=== PATIENT | male | born 1985 | race Caucasian/White ===

== ENCOUNTER 2017-03-06 02:48 | Emergency (ER) | payer MEDICARE, MEDICAID ==
[~2017-03-06] VITALS: Ht 175.3 cm; Wt 74.3 kg
[~2017-03-06 02:48] MED LIST: GABA800T2 PO
[2017-03-06] MEDS ORDERED: ketorolac trometh. 30mg/ml inj. IM ONE (04:40)
[2017-03-06 06:23] VITALS: BP 121/77
== END 2017-03-06 06:24 | disposition home or self-care (01) ==
LOC: ER 02:48
DX: R07.89 Other chest pain (principal); R51 Headache; R20.0 Anesthesia of skin; F17.200 Nicotine dependence, unspecified, uncomplicated; Z59.0 Homelessness; Z88.6 Allergy status to analgesic agent
CPT/HCPCS: 93005; 99283; J1885

== ENCOUNTER 2017-03-07 06:45 | Emergency (ER) | payer MEDICARE, MEDICAID ==
[~2017-03-07] VITALS: Ht 172.7 cm; Wt 74.7 kg
[2017-03-07] MEDS ORDERED: famotidine 20mg tablet PO ONE (07:05)
[2017-03-07] MEDS ORDERED: pantoprazole 40mg Tablet.DR PO ONE (07:05)
[2017-03-07 07:37] VITALS: BP 117/62
== END 2017-03-07 07:39 | disposition home or self-care (01) ==
LOC: ER 06:46
DX: K21.9 Gastro-esophageal reflux disease without esophagitis (principal); R06.02 Shortness of breath; F17.200 Nicotine dependence, unspecified, uncomplicated; Z59.0 Homelessness; Z88.6 Allergy status to analgesic agent
CPT/HCPCS: 93005; 99283

== ENCOUNTER 2017-03-10 14:03 | Emergency (ER) | payer MEDICARE, MEDICAID ==
[~2017-03-10] VITALS: Ht 172.7 cm; Wt 73.5 kg
[2017-03-10] MEDS ORDERED: METH500T PO (15:23)
[2017-03-10 15:36] VITALS: BP 130/77
== END 2017-03-10 15:38 | disposition home or self-care (01) ==
LOC: ER 14:04
DX: S16.1XXA Strain of muscle, fascia and tendon at neck level, initial encounter (principal); F41.9 Anxiety disorder, unspecified; K21.9 Gastro-esophageal reflux disease without esophagitis; G89.29 Other chronic pain; Z59.0 Homelessness; Z56.0 Unemployment, unspecified; Z88.6 Allergy status to analgesic agent; X58.XXXA Exposure to other specified factors, initial encounter; Y93.89 Activity, other specified; Y92.89 Other specified places as the place of occurrence of the external cause; Y99.9 Unspecified external cause status
CPT/HCPCS: 99283

== ENCOUNTER 2017-03-12 07:25 | Emergency (ER) | payer MEDICARE, MEDICAID ==
[~2017-03-12] VITALS: Ht 5703.2 cm; Wt 73.3 kg
[~2017-03-12 07:25] MED LIST changes: +METH500T PO
[2017-03-12] MEDS ORDERED: DICL-194 PO (07:39)
[2017-03-12 07:50] VITALS: BP 131/74
== END 2017-03-12 07:52 | disposition home or self-care (01) ==
LOC: ER 07:25
DX: S16.1XXD Strain of muscle, fascia and tendon at neck level, subsequent encounter (principal); K21.9 Gastro-esophageal reflux disease without esophagitis; G89.29 Other chronic pain; Z59.0 Homelessness; Z88.6 Allergy status to analgesic agent; X58.XXXD Exposure to other specified factors, subsequent encounter
CPT/HCPCS: 99283

== ENCOUNTER 2017-08-07 03:24 | Emergency (ER) | payer MEDICARE, MEDICAID ==
[~2017-08-07] VITALS: Ht 175.3 cm; Wt 80.0 kg
[~2017-08-07 03:24] MED LIST changes: +DICL-194 PO
[2017-08-07 03:29] VITALS: BP 139/90
[2017-08-07] MEDS ORDERED: ibuprofen tablet 400 MG TABLET PO ONE (03:40)
[2017-08-07] MEDS ORDERED: metoclopramide 10mg tablet PO ONE (03:40)
[2017-08-07] MEDS ORDERED: IBUP-1984 PO (03:40)
[2017-08-07] MEDS: diphenhydrAMINE 25mg capsule PO ONE ×2 (03:46→03:47)
== END 2017-08-07 03:55 | disposition home or self-care (01) ==
LOC: ER 03:24
DX: G43.909 Migraine, unspecified, not intractable, without status migrainosus (principal); M54.9 Dorsalgia, unspecified; K21.9 Gastro-esophageal reflux disease without esophagitis; G89.29 Other chronic pain; Z60.2 Problems related to living alone; Z59.0 Homelessness; Z56.0 Unemployment, unspecified; Z88.8 Allergy status to other drugs, medicaments and biological substances; Z79.899 Other long term (current) drug therapy
CPT/HCPCS: 99283; J8597; Q0163

== ENCOUNTER 2017-08-09 21:53 | Emergency (ER) | payer MEDICARE, MEDICAID ==
[~2017-08-09] VITALS: Ht 175.3 cm; Wt 64.0 kg
[~2017-08-09 21:53] MED LIST changes: +IBUP-1984 PO
[2017-08-09] MEDS ORDERED: acetaminophen 325mg tablet PO ONE (22:35)
[2017-08-09] MEDS ORDERED: ketorolac tromethamine 15mg/ml inj. IM ONE (22:35)
[2017-08-09] MEDS ORDERED: SUMAtriptan succ. 6 MG/0.5ml vial SQ ONE (22:35)
[2017-08-09] MEDS ORDERED: IBUP-1985 PO (22:57)
[2017-08-09 23:00] VITALS: BP 127/75
== END 2017-08-09 23:03 | disposition home or self-care (01) ==
LOC: ER 21:53
DX: R51 Headache (principal); F17.200 Nicotine dependence, unspecified, uncomplicated; G89.29 Other chronic pain; K21.9 Gastro-esophageal reflux disease without esophagitis; Z88.6 Allergy status to analgesic agent; Z79.899 Other long term (current) drug therapy; Z56.0 Unemployment, unspecified; Z59.0 Homelessness; Z60.2 Problems related to living alone
CPT/HCPCS: 99282; J1885; J3030

== ENCOUNTER 2017-08-11 13:13 | Emergency (ER) | payer MEDICARE, MEDICAID ==
[~2017-08-11] VITALS: Ht 175.3 cm; Wt 77.0 kg
[~2017-08-11 13:13] MED LIST changes: +IBUP-1985 PO
[2017-08-11 13:25] VITALS: BP 123/75
[2017-08-11] MEDS ORDERED: GABA800T2 PO (13:47)
[2017-08-11] MEDS ORDERED: IBUP-1984 PO (13:48)
== END 2017-08-11 13:56 | disposition home or self-care (01) ==
LOC: ER 13:13
DX: M54.2 Cervicalgia (principal); K21.9 Gastro-esophageal reflux disease without esophagitis; G89.29 Other chronic pain; Z56.0 Unemployment, unspecified; Z59.0 Homelessness; Z60.2 Problems related to living alone; Z88.8 Allergy status to other drugs, medicaments and biological substances; Z79.899 Other long term (current) drug therapy
CPT/HCPCS: 99283

== ENCOUNTER 2017-08-13 04:29 | Emergency (ER) | payer MEDICARE, MEDICAID ==
[~2017-08-13] VITALS: Ht 172.7 cm; Wt 76.3 kg
[2017-08-13 04:36] VITALS: BP 127/71
[2017-08-13] MEDS ORDERED: acetaminophen 325mg tablet PO ONE (04:45)
[2017-08-13] MEDS ORDERED: LIDOcaine 5% patch TP ONE (04:45)
[2017-08-13] MEDS ORDERED: ketorolac trometh inj. 60 MG/2 ML VIAL IM ONE (04:45)
[2017-08-13] MEDS ORDERED: LIDO700A32 TOP (05:10)
== END 2017-08-13 05:18 | disposition home or self-care (01) ==
LOC: ER 04:30
DX: M54.2 Cervicalgia (principal); G89.29 Other chronic pain; K21.9 Gastro-esophageal reflux disease without esophagitis; Z88.6 Allergy status to analgesic agent; Z79.899 Other long term (current) drug therapy; Z56.0 Unemployment, unspecified; Z59.0 Homelessness; Z60.2 Problems related to living alone
CPT/HCPCS: 96372; 99283; J1885

== ENCOUNTER 2017-08-16 15:25 | Emergency (ER) | payer MEDICARE, MEDICAID ==
[~2017-08-16] VITALS: Ht 175.3 cm; Wt 78.4 kg
[~2017-08-16 15:25] MED LIST changes: +LIDO700A32 TOP
[2017-08-16 15:31] VITALS: BP 131/71
[2017-08-16] MEDS ORDERED: SUMA100T PO (16:00)
[2017-08-16] MEDS ORDERED: LORazepam 1 MG tablet PO ONE (16:00)
[2017-08-16] MEDS ORDERED: SUMAtriptan succ. 6 MG/0.5ml vial SQ ONE (16:00)
[2017-08-16] MEDS ORDERED: ketorolac trometh inj. 60 MG/2 ML VIAL IM ONE (16:00)
== END 2017-08-16 16:52 | disposition home or self-care (01) ==
LOC: ER 15:25
DX: G43.909 Migraine, unspecified, not intractable, without status migrainosus (principal); K21.9 Gastro-esophageal reflux disease without esophagitis; Z60.2 Problems related to living alone; Z59.0 Homelessness; Z56.0 Unemployment, unspecified; Z79.899 Other long term (current) drug therapy; Z88.4 Allergy status to anesthetic agent
CPT/HCPCS: 96372; 99284; J1885; J3030

== ENCOUNTER 2017-08-20 11:20 | Emergency (ER) | payer MEDICARE, MEDICAID ==
[~2017-08-20] VITALS: Ht 175.3 cm; Wt 81.8 kg
[~2017-08-20 11:20] MED LIST changes: +SUMA100T PO
[2017-08-20] MEDS ORDERED: dexamethasone sod phosphate 10mg/ml inj IV STA (12:47)
[2017-08-20] MEDS ORDERED: ketorolac trometh. 30mg/ml inj. IV ONE (12:50)
[2017-08-20] MEDS ORDERED: NAPR-56 PO (12:50)
[2017-08-20] MEDS ORDERED: proCHLORperazine 10 MG/2 ml inj IV ONE (12:50)
[2017-08-20] MEDS ORDERED: normal saline 1000ML IV soln IVB ONE (12:50)
[2017-08-20] MEDS ORDERED: morphine 4 MG/ML inj SYRINge IV ONE (12:50)
[2017-08-20 13:26] VITALS: BP 123/71
== END 2017-08-20 13:56 | disposition home or self-care (01) ==
LOC: ER 11:21
DX: G43.909 Migraine, unspecified, not intractable, without status migrainosus (principal); K21.9 Gastro-esophageal reflux disease without esophagitis; G89.29 Other chronic pain; Z60.2 Problems related to living alone; Z59.0 Homelessness; Z56.0 Unemployment, unspecified; Z88.8 Allergy status to other drugs, medicaments and biological substances; Z79.899 Other long term (current) drug therapy
CPT/HCPCS: 96374; 96375; 99284; J0780; J1100; J1885; J2270; J7030

== ENCOUNTER 2024-09-04 01:49 | Emergency (ER) | payer MEDICARE, MEDICAID ==
[~2024-09-04] VITALS: Ht 172.7 cm; Wt 68.2 kg
[~2024-09-04 01:49] MED LIST changes: +BUPR1FIL3 SL; +GABA-1555 PO; -GABA800T2 PO; -IBUP-1984 PO; +LIDO-52 TOP; -LIDO700A32 TOP; -SUMA100T PO
--- NOTE | 2024-09-04 02:11 | Physician Documentation ---
History of Present Illness ~ Chief Complaint: Headache Stated Complaint: HEADACHE Time Seen by MD: 02:07 Primary Medical Doctor: pedro pablo GOODRICH Patient presents to the emergency room with headache. Patient has history of headaches in his scribe's this is similar. Also requesting Suboxone strip. Reports ibuprofen works well for him. Medication Reconciliation Allergies: Coded Allergies: tramadol (Unverified Allergy, Intermediate, SEIZURES, 08/31/24) Scheduled Buprenorphine Hcl/Naloxone Hcl (Suboxone 8 Mg-2 Mg Sl Film), 1 STRIP SL DAILY Diclofenac Sodium (Diclofenac Sodium), 1 TABLET PO BID Gabapentin (Gabapentin), 1 TAB PO Q8H, (Reported) Gabapentin (Gabapentin), 1 TAB PO Q8H Ibuprofen (Ibuprofen), 1 TAB PO Q8H Lidocaine (Lidoderm), 1 PATCH TOP DAILY Methocarbamol (Robaxin), 1 TAB PO Q8H Past Medical History Past Medical History: Headache, Migraine, GERD, Chronic Pain, Anxiety Past Surgical History: no surgical history Alcohol Use: None Drug Use: none Lives with: Alone Lives In: Homeless, Other Occupation: unemployed Review of Systems ROS All review of systems negative except as per HPI Physical Exam Vital Signs: Temperature: 97.9, Source: Temporal, Heart Rate: 106, Respiratory Rate: 16, BP: 127/90, Pulse Oximetry: 96, Weight: 68.180 Oxygen Flow Rate: 0 Physical Exam General: Patient is awake, alert, oriented x4 in no acute distress, fidgety Head: Normocephalic and atraumatic. Eyes: Conjunctival normal. EOMI. PERRL. ENT: Mucous membranes moist. Neck: Supple, trachea is midline. Chest: Clear to auscultation bilaterally without rales, rhonchi, or wheezes. There is no accessory muscle use or retractions. Cardiac: Tachycardic and regular without murmurs, gallops, or rubs. Progress Results/Orders Results/Orders Vital Signs 09/04/24 02:01 Temp 97.9 Pulse 106 Resp 16 B/P (MAP) 127/90 Pulse Ox 96 O2 Flow Rate 0 Medical Decision Making Findings Patient presents to the emergency room with headache. This is his usual headache and he had not feel emergent labs or imaging is necessary as I do not suspect meningitis or acute emergent intracranial process such as bleeds although these were considered. Differential Dx:Considerations: Include: RODAS-Cluster, RODAS-Migraine, RODAS- Hypertensive, Close head injuyr, CVA, Hemorrhage-Intracerebral, Hemorrhage-Subarachnoid, Hemorrhage-Subdural Departure Disposition: 01 HOME / SELF CARE / HOMELESS Impression: Primary Impression: Headache Condition: Stable Discharge Instructions: Headache Referrals: NO PRIMARY CARE PROVIDER (PCP) Signature Scribe Signature: No scribe Attestation: The note accurately reflects work and decisions made by me.Gutierrez Glez MD 09/04/24 02:11 GUTIERREZ GLEZ MD Sep 04, 2024 02:11
[2024-09-04] MEDS: buprenorphine/naloxone 8MG-2MG SUBlingual film SL ONE (02:19)
[2024-09-04] MEDS: ibuprofen tablet 400 MG TABLET PO ONE (02:19)
[2024-09-04] MEDS: ondansetron 4mg rapidly disintigrating tab PO ONE (02:19)
[2024-09-04 02:31] VITALS: BP 126/88; PULSE 103; RESP 20; TEMP 98.6; O2SAT 99
== END 2024-09-04 02:32 | disposition home or self-care (01) ==
LOC: ER 01:49
DX: G43.909 Migraine, unspecified, not intractable, without status migrainosus (principal); K21.9 Gastro-esophageal reflux disease without esophagitis; F41.9 Anxiety disorder, unspecified; Z79.899 Other long term (current) drug therapy; Z88.5 Allergy status to narcotic agent; Z88.8 Allergy status to other drugs, medicaments and biological substances
CPT/HCPCS: 99284

== ENCOUNTER 2024-09-13 09:38 | Emergency (ER) | payer MEDICAID, MEDICARE ==
[~2024-09-13] VITALS: Ht 172.7 cm; Wt 75.5 kg
[~2024-09-13 09:38] MED LIST changes: -BUPR1FIL3 SL
[2024-09-13] MEDS ORDERED: SUMA25TA35 PO (09:50)
[2024-09-13] MEDS ORDERED: IBUP-860 PO (09:50)
--- NOTE | 2024-09-13 09:53 | Physician Documentation ---
History of Present Illness ~ Chief Complaint: Headache Stated Complaint: HEADACHE Time Seen by MD: 09:46 Primary Medical Doctor: pedro pablo Source: patient Mode of Arrival: Ambulatory Exam Limitations: no limitations HPI 39-year-old male complaining of mild headache wanting medications for headache, he wanted Suboxone which he has been off of it for several weeks in his only beginning in the emergency department. Patient is also requesting services. Patient is homeless. Patient denies any dizziness, shortness of breath, chest pain or fever Medication Reconciliation Allergies: Coded Allergies: tramadol (Unverified Allergy, Intermediate, SEIZURES, 08/31/24) Scheduled Diclofenac Sodium (Diclofenac Sodium), 1 TABLET PO BID Gabapentin (Gabapentin), 1 TAB PO Q8H, (Reported) Gabapentin (Gabapentin), 1 TAB PO Q8H Ibuprofen (Ibuprofen), 1 TAB PO Q8H Lidocaine (Lidoderm), 1 PATCH TOP DAILY Methocarbamol (Robaxin), 1 TAB PO Q8H Discontinued Medications Buprenorphine Hcl/Naloxone Hcl (Suboxone 8 Mg-2 Mg Sl Film), 1 STRIP SL DAILY Discontinued Reason: Auto Discontinued Past Medical History Past Medical History: Headache, Migraine, GERD, Chronic Pain, Anxiety Past Surgical History: no surgical history Alcohol Use: None Drug Use: none Lives with: Alone Lives In: Homeless, Other Occupation: unemployed Review of Systems All Other Systems at this time: Reviewed and Negative Neurological: Reports: see HPI Physical Exam Vital Signs: RN Vital Signs have been reviewed: Yes, Temperature: 97.8, Source: Temporal, Heart Rate: 110, Respiratory Rate: 15, BP: 114/72, Pulse Oximetry: 97, Weight: 75.550 Physical Exam General: Alert, no apparent distress. HEENT: PERRL, EOMI, no injection, moist mucous membranes. Neck: Full range of motion. Respiratory: Lungs clear, no respiratory distress. Chest: No accessory muscle use. Cardiovascular: Regular rate and rhythm, no murmurs. Neurologic: Oriented x4. Cranial nerves grossly intact smooth ambulation equal extruding department supervisor strength Psychiatric: Normal mood and affect. Skin: Normal color, warm and dry. No edema, no ecchymosis. Progress Results/Orders Results/Orders Vital Signs 09/13/24 09:39 Temp 97.8 Pulse 110 Resp 15 B/P (MAP) 114/72 Pulse Ox 97 Medical Decision Making Findings Patient has history of migraine headaches he has homeless and has not had much food today. Patient is requesting resources which will provided at discharge. Sumatriptan and Toradol prior to discharge sumatriptan and ibuprofen prescribed. Discussed out reach program such as [facility]. Neurologic exam unremarkable for any significant findings. Differential Dx:Considerations: Include: RODAS-Migraine Departure Time of Disposition: 09:49 Disposition: 01 HOME / SELF CARE / HOMELESS Impression: Primary Impression: Headache Condition: Stable Discharge Instructions: Headache Additional Instructions: Take medications as prescribed for headache stay well hydrated follow up with [facility] provided and packet and handout for resources. Referrals: NO PRIMARY CARE PROVIDER (PCP) Prescriptions Sumatriptan Succinate* (Imitrex Tab*) 25 Mg Tablet 1 TAB PO DAILY for 9 Days, #9 TAB Prov: FAUZIA PEREA NP 09/13/24 Ibuprofen (Ibu) 400 Mg Tablet 1 TAB PO Q4H for 5 Days, #30 TAB 0 Refills NEEDED FOR PAIN Prov: FAUZIA PEREA NP 09/13/24 Education Educated: Patient Educated regarding: diagnosis, treatment, need for follow up Signature Scribe Signature: No scribe Attestation: The note accurately reflects work and decisions made by me.Fauzia RIOS 09/13/24 09:52 FAUZIA PEREA NP Sep 13, 2024 09:53
[2024-09-13] MEDS: ketorolac trometh 15mg/ml vial 15 MG/ML ML IM ONE (09:55)
[2024-09-13] MEDS: ketorolac trometh 30MG/ML vial 30 MG/ML VIAL IM ONE (10:09)
[2024-09-13 10:27] VITALS: BP 130/72; PULSE 76; RESP 16; TEMP 97.8; O2SAT 98
== END 2024-09-13 10:28 | disposition home or self-care (01) ==
LOC: ER 09:38
DX: G43.909 Migraine, unspecified, not intractable, without status migrainosus (principal); K21.9 Gastro-esophageal reflux disease without esophagitis; F41.9 Anxiety disorder, unspecified
CPT/HCPCS: 96372; 99283; J1885

== ENCOUNTER 2024-09-18 23:35 | Emergency (ER) | payer MEDICARE ==
[~2024-09-18] VITALS: Ht 172.7 cm; Wt 77.2 kg
[~2024-09-18 23:35] MED LIST changes: +IBUP-860 PO; +SUMA25TA35 PO
[2024-09-18 23:37] VITALS: BP 126/82; PULSE 89; RESP 12; O2SAT 98
--- NOTE | 2024-09-19 02:00 | Physician Documentation ---
HPI ~ General Chief Complaint: Medication Request Stated Complaint: HEADACHE Time Seen by MD: 01:55 OK to notify your PCP?: Yes Primary Medical Doctor: [facility] Source: patient, RN/MD, RN notes reviewed, old records Mode of Arrival: POV Exam Limitations: no limitations History of Present Illness HPI Comments 39 year old male presents to the emergency department complaining of a headache and is requesting medication. Patient described his headache as throbbing. He requests Suboxone and Zofan stating that he currently does not see primary care. Patient states that [facility] Medication Reconciliation Allergies: Coded Allergies: tramadol (Unverified Allergy, Intermediate, SEIZURES, 08/31/24) Scheduled Buprenorphine Hcl/Naloxone Hcl (Suboxone 4 Mg-1 Mg Sl Film), 1 STRIP SL DAILY Diclofenac Sodium (Diclofenac Sodium), 1 TABLET PO BID Gabapentin (Gabapentin), 1 TAB PO Q8H, (Reported) Gabapentin (Gabapentin), 1 TAB PO Q8H Ibuprofen (Ibuprofen), 1 TAB PO Q8H Ibuprofen (Ibu), 1 TAB PO Q4H Lidocaine (Lidoderm), 1 PATCH TOP DAILY Methocarbamol (Robaxin), 1 TAB PO Q8H Naproxen (Naproxen), 1 TAB PO Q12H Sumatriptan Succinate* (Imitrex Tab*), 1 TAB PO DAILY Past Medical History Past Medical History: Headache, Migraine, GERD, Chronic Pain, Anxiety Past Surgical History: no surgical history Alcohol Use: None Drug Use: none Lives with: Alone Lives In: Homeless, Other Occupation: unemployed Review of Systems All Other Systems at this time: Reviewed and Negative ROS As stated above in the HPI, otherwise all systems are reviewed and negative. Physical Exam Physical Exam Vital Signs: RN Vital Signs have been reviewed: Yes, Temperature: 98.2, Heart Rate: 89, Respiratory Rate: 12, BP: 126/82, Pulse Oximetry: 98, Weight: 77.250 Pulse Oximetry Reflects: adequate oxygenation Physical Exam General: Alert, no apparent distress. HEENT: PERRL, EOMI, no injection, moist mucous membranes. Neck: Full range of motion. Respiratory: Lungs clear, no respiratory distress. Chest: No accessory muscle use. Cardiovascular: Regular rate and rhythm, no murmurs. Neurologic: Oriented x4. Cranial nerves grossly intact smooth ambulation equal inner tube cutter strength Psychiatric: Normal mood and affect. Skin: Normal color, warm and dry. No edema, no ecchymosis. Progress Results/Orders Reviewed/noted all lab results: Yes Results/Orders Orders - BEHZAD NG MD Substance Use Navigator (09/19/24 02:02) Completed Orders - BEHZAD NG MD Buprenorphine/Naloxone Sl Film (Suboxone (09/19/24 02:03) Naproxen Tablet (Naprosyn Tablet) (09/19/24 02:05) Buprenorphine/Naloxone Sl Film (Suboxone (09/19/24 08:00) Medications Received in ER Medications (Trade) Dose Ordered Sig/Conor Route PRN Reason Start Time Stop Time Status Last Admin Dose Admin (Suboxone 8MG-2MG SL film) 2 film ONCE STAT SL 09/19/24 02:03 09/19/24 02:04 DC 09/19/24 02:18 2 FILM (Naprosyn tablet) 500 mg ONCE ONCE PO 09/19/24 02:05 09/19/24 02:06 DC 09/19/24 02:18 500 MG Vital Signs 09/18/24 09/19/24 23:37 02:13 Temp 98.2 98.2 Pulse 89 Resp 12 B/P (MAP) 126/82 Pulse Ox 98 Re-Evaluation Re-Evaluation : Re-Evaluation: Improved Progress Patient was seen and examined. Patient was given reassurance. The patient is out of his medications. He was encouraged to follow up with the primary care rather than coming to the ER and getting his medication refills. Patient states he takes three tablets or inches of naloxone Suboxone. However reviewing the old medical record I do not see any documentation of such a high dose. Patient was then given just medications as well as naproxen. Afterwards patient was discharged home to follow up with a primary care physician as mentioned we talked about the [facility] as well as the [facility]. Patient appears well otherwise and was discharged home. Medical Decision Making Additional info obtained from: old records Differential Dx:Considerations: Include: Adverse circumstances, Psychosocial, Medical services unavail., Medication refill, Medication non-compliance, Other Departure Time of Disposition: 02:10 Disposition: 01 HOME / SELF CARE / HOMELESS Impression: Primary Impression: Headache Qualified Codes: R51.9 - Headache, unspecified Additional Impression: Medication refill Condition: Stable Discharge Instructions: Medicine Refill at the Emergency Department Referrals: NO PRIMARY CARE PROVIDER (PCP) Prescriptions Buprenorphine Hcl/Naloxone Hcl (SUBOXONE 4 MG-1 MG SL FILM) 4 Mg-1 Mg Film 1 STRIP SL DAILY for 30 Days, #30 STRIP 0 Refills Prov: BEHZAD NG MD 09/19/24 Naproxen (Naproxen) 500 Mg Tablet 1 TAB PO Q12H, #20 TAB Prov: BEHZAD NG MD 09/19/24 Education Educated: Patient Educated regarding: diagnosis, treatment, prognosis, need for follow up Signature Scribe Signature: Scribed for Behzad Ng MD by Jesus Rodriguez . 09/19/24 02:10 Attestation: The note accurately reflects work and decisions made by me.Behzad Ng MD 09/19/24 01:59 BEHZAD NG MD Sep 19, 2024 02:00 JESUS RAO Sep 19, 2024 02:10
[2024-09-19] MEDS ORDERED: NAPR-56 PO (02:10)
[2024-09-19] MEDS ORDERED: BUPR1FIL5 SL (02:10)
[2024-09-19 02:13] VITALS: TEMP 98.2
[2024-09-19] MEDS: buprenorphine/naloxone 8MG-2MG SUBlingual film SL STA (02:18)
[2024-09-19] MEDS ORDERED: buprenorphine/naloxone 8MG-2MG SUBlingual film SL SCH (08:00)
== END 2024-09-19 02:23 | disposition home or self-care (01) ==
LOC: ER 23:36
DX: R51.9 Headache, unspecified (principal); Z76.0 Encounter for issue of repeat prescription; Z88.5 Allergy status to narcotic agent
CPT/HCPCS: 99283

== ENCOUNTER 2024-09-24 08:08 | Emergency (ER) | payer MEDICARE ==
[~2024-09-24] VITALS: Ht 172.7 cm; Wt 77.8 kg
[~2024-09-24 08:08] MED LIST changes: +BUPR1FIL5 SL; +NAPR-56 PO; -SUMA25TA35 PO
[2024-09-24] MEDS: ketorolac trometh 30MG/ML vial 30 MG/ML VIAL IV ONE (08:57)
[2024-09-24] MEDS: normal saline 1000ml 1,000 ML IV ONE (08:57)
[2024-09-24 09:00] VITALS: TEMP 98.8
--- NOTE | 2024-09-24 09:04 | Physician Documentation ---
History of Present Illness ~ Chief Complaint: Headache Stated Complaint: HEADACHE Time Seen by MD: 08:42 Primary Medical Doctor: pedro pablo Source: patient Mode of Arrival: POV, Ambulatory Exam Limitations: no limitations HPI Patient who were who reports a history of migraines. States he always has a mild frontal headache every day. Sometimes it gets worse. Does not take anything at home for it. Has never seen a neurologist. Currently pain is moderate. Medication Reconciliation Allergies: Coded Allergies: tramadol (Unverified Allergy, Intermediate, SEIZURES, 09/24/24) Scheduled Buprenorphine Hcl/Naloxone Hcl (Suboxone 4 Mg-1 Mg Sl Film), 1 STRIP SL DAILY Diclofenac Sodium (Diclofenac Sodium), 1 TABLET PO BID Gabapentin (Gabapentin), 1 TAB PO Q8H, (Reported) Gabapentin (Gabapentin), 1 TAB PO Q8H Ibuprofen (Ibuprofen), 1 TAB PO Q8H Ibuprofen (Ibu), 1 TAB PO Q4H Lidocaine (Lidoderm), 1 PATCH TOP DAILY Methocarbamol (Robaxin), 1 TAB PO Q8H Naproxen (Naproxen), 1 TAB PO Q12H Discontinued Medications Sumatriptan Succinate* (Imitrex Tab*), 1 TAB PO DAILY Discontinued Reason: Auto Discontinued Past Medical History Past Medical History: Headache, Migraine, GERD, Chronic Pain, Anxiety Past Surgical History: no surgical history Alcohol Use: None Drug Use: none Lives with: Alone Lives In: Homeless, Other Occupation: unemployed Review of Systems All Other Systems at this time: Reviewed and Negative Physical Exam Vital Signs: Temperature: 98.8, Source: Temporal, Heart Rate: 82, Respiratory Rate: 16, BP: 121/69, Pulse Oximetry: 97, Weight: 77.750 Oxygen Flow Rate: 0 General Appearance: alert, WD/WN ENT: normal ENT inspection, PERRL/EOMI Nose: normal inspection Head: normal inspection Neck: non-tender, full range of motion, supple Respiratory: normal breath sounds Chest: no accessory muscle use Skin: warm/dry, normal color Neurologic: oriented x4, memory intact Motor / Sensory: no motor deficit, no sensory deficit Cerebellar function exam: normal Progress Progress Note Patient in with moderate migraine headache. Keep Toradol, Benadryl and fluids and he is feeling much better. Discharged home in good condition. Follow up with PCP if not improving or return if new or worsening symptoms. Results/Orders Results/Orders Orders - NISA ROBERTSON MD Normal Saline 1000ml (0.9% Sodium Chlori (09/24/24 08:45) Completed Orders - NISA ROBERTSON MD Ketorolac Trometh 30mg/Ml Vial (Toradol (09/24/24 08:45) Diphenhydramine Inj (Benadryl Inj.) (09/24/24 08:45) Medications Received in ER Medications (Trade) Dose Ordered Sig/Conor Route PRN Reason Start Time Stop Time Status Last Admin Dose Admin (Toradol inj. 30mg/ml) 30 mg ONCE ONCE IV 09/24/24 08:45 09/24/24 08:51 DC 09/24/24 08:57 30 MG Sodium Chloride 1,000 ml @ 1,000 mls/hr ONCE ONCE IV 09/24/24 08:45 09/24/24 09:44 09/24/24 08:57 1,000 MLS/HR (Benadryl inj.) 50 mg ONCE ONCE IV 09/24/24 08:45 09/24/24 08:46 DC 09/24/24 08:56 50 MG Vital Signs 09/24/24 09/24/24 09/24/24 09/24/24 08:12 08:21 08:28 08:57 Temp 98.8 Pulse 117 103 Resp 18 16 16 16 B/P (MAP) 120/82 121/79 (93) Pulse Ox 98 97 O2 Flow Rate 0 0 09/24/24 09:00 Temp 98.8 Pulse 82 Resp 16 B/P (MAP) 121/69 (86) Pulse Ox 97 O2 Flow Rate 0 Departure Impression: Primary Impression: Migraine Qualified Codes: G43.909 - Migraine, unspecified, not intractable, without status migrainosus Discharge Instructions: Chronic Migraine Headache, [facility] Additional Instructions: Follow-up with your doctor in the next 7-10 days. Return here if new or worsening symptoms. Referrals: NO PRIMARY CARE PROVIDER (PCP) Education Educated: Patient Educated regarding: diagnosis, treatment, need for follow up Signature Scribe Signature: No scribe used Attestation: No scribe used NISA ROBERTSON MD Sep 24, 2024 09:04
[2024-09-24 09:49] VITALS: BP 120/74; PULSE 86; RESP 14; O2SAT 98
== END 2024-09-24 09:49 | disposition home or self-care (01) ==
LOC: ER 08:09
DX: G43.909 Migraine, unspecified, not intractable, without status migrainosus (principal); F41.9 Anxiety disorder, unspecified; K21.9 Gastro-esophageal reflux disease without esophagitis; Z88.5 Allergy status to narcotic agent; Z88.8 Allergy status to other drugs, medicaments and biological substances; Z59.00 Homelessness unspecified
CPT/HCPCS: 96361; 96374; 96375; 99284; J1200; J1885; J7030

== ENCOUNTER 2024-10-10 03:52 | Emergency (ER) | payer MEDICARE ==
[~2024-10-10] VITALS: Ht 172.7 cm; Wt 75.1 kg
[~2024-10-10 03:52] MED LIST changes: -IBUP-1985 PO; +IBUP600T52 PO
[2024-10-10 04:02] VITALS: TEMP 98.2
--- NOTE | 2024-10-10 04:27 | Physician Documentation ---
History of Present Illness ~ Chief Complaint: Headache Stated Complaint: HEADACHE Time Seen by MD: 04:26 Primary Medical Doctor: pedro pablo GOODRICH Patient presents to the emergency room with headache. Patient has history of chronic headaches. Took Advil a proximally 6 hours prior to arrival. When asked what works best for him he says NSAIDs. Denies fevers Medication Reconciliation Allergies: Coded Allergies: tramadol (Unverified Allergy, Intermediate, SEIZURES, 09/24/24) chlorpromazine (Verified Adverse Reaction, Intermediate, FAINTING, 10/10/24) Scheduled Buprenorphine Hcl/Naloxone Hcl (Suboxone 4 Mg-1 Mg Sl Film), 1 STRIP SL DAILY Diclofenac Sodium (Diclofenac Sodium), 1 TABLET PO BID Gabapentin (Gabapentin), 1 TAB PO Q8H, (Reported) Gabapentin (Gabapentin), 1 TAB PO Q8H Ibuprofen (Ibuprofen), 1 TAB PO Q8H Ibuprofen (Ibu), 1 TAB PO Q4H Lidocaine (Lidoderm), 1 PATCH TOP DAILY Methocarbamol (Robaxin), 1 TAB PO Q8H Naproxen (Naproxen), 1 TAB PO Q12H Past Medical History Past Medical History: Headache, Migraine, GERD, Chronic Pain, Anxiety Past Surgical History: no surgical history Alcohol Use: None Drug Use: none Lives with: Alone Lives In: Homeless, Other Occupation: unemployed Review of Systems ROS All review of systems negative except as per HPI Physical Exam Vital Signs: Temperature: 98.2, Source: Temporal, Heart Rate: 80, Respiratory Rate: 18, BP: 119/85, Pulse Oximetry: 98, Weight: 75.100 Oxygen Flow Rate: 0 Physical Exam General: Patient is awake, alert, oriented x4 in no acute distress Head: Normocephalic and atraumatic. Eyes: Conjunctival normal. EOMI. PERRL. ENT: Mucous membranes moist. Neck: Supple, trachea is midline. No meningismus Chest: Clear to auscultation bilaterally without rales, rhonchi, or wheezes. There is no accessory muscle use or retractions. Cardiac: RRR without murmurs, gallops, or rubs. Progress Results/Orders Results/Orders Vital Signs 10/10/24 04:02 Temp 98.2 Pulse 80 Resp 18 B/P (MAP) 119/85 Pulse Ox 98 O2 Flow Rate 0 Medical Decision Making Findings Patient presents to the emergency room with headache as per HPI. The patient has long history of headaches and he had not feel he requires emergent imaging or labs. I do not suspect meningitis or acute intracranial emergency. Departure Disposition: HOME / SELF CARE / HOMELESS Impression: Primary Impression: Headache Condition: Improved Discharge Instructions: Headache Additional Instructions: Follow up with your doctor for management of your headaches. Make sure you get your eyes checked as this could contribute to your headaches. Referrals: NO PRIMARY CARE PROVIDER (PCP) Signature Scribe Signature: No scribe Attestation: The note accurately reflects work and decisions made by me.Gutierrez Glez MD 10/10/24 04:43 GUTIERREZ GLEZ MD Oct 10, 2024 04:27
[2024-10-10] MEDS: ketorolac trometh 15mg/ml vial 15 MG/ML ML IM ONE (05:08)
[2024-10-10 05:11] VITALS: BP 146/98; PULSE 88; RESP 16; O2SAT 99
== END 2024-10-10 05:12 | disposition home or self-care (01) ==
LOC: ER 03:53
DX: G43.909 Migraine, unspecified, not intractable, without status migrainosus (principal); K21.9 Gastro-esophageal reflux disease without esophagitis; F41.9 Anxiety disorder, unspecified; Z59.00 Homelessness unspecified; Z56.0 Unemployment, unspecified; Z60.2 Problems related to living alone; Z88.8 Allergy status to other drugs, medicaments and biological substances; Z79.899 Other long term (current) drug therapy
CPT/HCPCS: 99283

== ENCOUNTER 2024-10-13 08:25 | Emergency (ER) | payer MEDICARE ==
[~2024-10-13] VITALS: Ht 172.7 cm; Wt 79.2 kg
[2024-10-13 08:31] VITALS: BP 122/76; PULSE 99; RESP 16; TEMP 97.7; O2SAT 97
--- NOTE | 2024-10-13 09:14 | Physician Documentation ---
History of Present Illness ~ Chief Complaint: Headache Stated Complaint: HEADACHE Time Seen by MD: 09:03 OK to notify your PCP?: Yes Primary Medical Doctor: pedro pablo Source: patient Mode of Arrival: POV Exam Limitations: no limitations HPI 39 year old male presents for posterior headache on/off for past 3 weeks. He took a 1000 mg of Tylenol prior to arrival. He had a history of migraines and states this feels similar, usually ibuprofen works for him but he is homeless and does not have any access to some. Denies vision change, photophobia, or "worse headache of his life". Denies any other symptoms. Requesting suboxone 8mg film, has plans to see clinic tomorrow morning but ran out. usually takes TID but last dose yesterday morning. Medication Reconciliation Allergies: Coded Allergies: tramadol (Unverified Allergy, Intermediate, SEIZURES, 10/13/24) chlorpromazine (Verified Adverse Reaction, Intermediate, FAINTING, 10/13/24) Scheduled Buprenorphine Hcl/Naloxone Hcl (Suboxone 4 Mg-1 Mg Sl Film), 1 STRIP SL DAILY Diclofenac Sodium (Diclofenac Sodium), 1 TABLET PO BID Gabapentin (Gabapentin), 1 TAB PO Q8H, (Reported) Gabapentin (Gabapentin), 1 TAB PO Q8H Ibuprofen (Ibuprofen), 1 TAB PO Q8H Ibuprofen (Ibu), 1 TAB PO Q4H Lidocaine (Lidoderm), 1 PATCH TOP DAILY Methocarbamol (Robaxin), 1 TAB PO Q8H Naproxen (Naproxen), 1 TAB PO Q12H Past Medical History Past Medical History: Headache, Migraine, GERD, Chronic Pain, Anxiety Past Surgical History: no surgical history Alcohol Use: None Drug Use: none Lives with: Alone Lives In: Homeless, Other Occupation: unemployed Review of Systems All Other Systems at this time: Reviewed and Negative Physical Exam Vital Signs: RN Vital Signs have been reviewed: Yes, Temperature: 97.7, Heart Rate: 99, Respiratory Rate: 16, BP: 122/76, Pulse Oximetry: 97, Weight: 79.200 Oxygen Flow Rate: 0 Pulse Oximetry Reflects: adequate oxygenation Physical Exam General: Alert, no apparent distress. HEENT: PERRL, EOMI, no injection, moist mucous membranes. Neck: Full range of motion. Respiratory: Lungs clear, no respiratory distress. Chest: No accessory muscle use. Cardiovascular: Regular rate and rhythm, no murmurs. Gastrointestinal: Soft, nontender, nondistended. Bowels sounds present. Extremities: Normal range of motion, no deformity. Neurologic: Oriented x4. Psychiatric: Normal mood and affect. Skin: Normal color, warm and dry. No edema, no ecchymosis. Progress Results/Orders Reviewed/noted all lab results: Yes Results/Orders Completed Orders - ELIAZAR GATES Ibuprofen Tablet (Motrin Tablet) (10/13/24 09:10) Acetaminophen 325mg Tablet (Tylenol Tabl (10/13/24 09:10) Buprenorphine/Naloxone Sl Film (Suboxone (10/13/24 09:10) Vital Signs 10/13/24 08:31 Temp 97.7 Pulse 99 Resp 16 B/P (MAP) 122/76 Pulse Ox 97 O2 Flow Rate 0 Medical Decision Making Additional info obtained from: old records Findings Has a history of migraines and states this feels same. He is requesting some ibuprofen as well as a 1 time dose of Suboxone as he has ran out. It is a Monday so the [facility] is closed but he has plans to go there 1st thing tomorrow morning. There his physical exam is unremarkable and there are no concerning red flag factors regarding this headache. I administered some ibuprofen as well as Suboxone while here in the department as he already took Tylenol prior to arrival. Differential Dx:Considerations: Include: RODAS-Cluster, RODAS-Migraine, RODAS- Hypertensive, Carbon monoxide toxicity, Close head injuyr, CVA, Meningitis Departure Disposition: 01 HOME / SELF CARE / HOMELESS Impression: Primary Impression: Headache Condition: Stable Discharge Instructions: Headache Additional Instructions: Please follow up with the Suboxone Clinic 1st thing tomorrow morning. You can continue taking Tylenol and ibuprofen for your headache. Return back here for any new or worsening symptoms. Referrals: NO PRIMARY CARE PROVIDER (PCP) Education Educated: Patient Educated regarding: diagnosis, treatment, prognosis, need for follow up Additional Comment Medical Screen Exam This patient recieved a medical screening examination. After reviewing the individual's medical complaints with presenting symptoms and performing an appropriate physical examination, it was determined that no immediate life- threatening emergency medical condition is present. This individual is also not a women having contractions. Signature Scribe Signature: . Attestation: Scribed for Eliazar Gates by Eliazar Gregory NP . 10/13/24 09:24 Parts of this note were created using [employer] voice recognition software program. While efforts were made to correct any mistakes made by this voice recognition software program, nonsensical phrases may remain in this note. In addition, there may be errors and syntax, grammar, content and spelling. ELIAZAR GATES [employer]LL ASSEMBLER Oct 13, 2024 09:14
[2024-10-13] MEDS: ibuprofen tablet 400 MG TABLET PO ONE (09:22)
[2024-10-13] MEDS: buprenorphine/naloxone 8MG-2MG SUBlingual film SL ONE (09:22)
== END 2024-10-13 09:34 | disposition home or self-care (01) ==
LOC: ER 08:25
DX: G43.909 Migraine, unspecified, not intractable, without status migrainosus (principal); K21.9 Gastro-esophageal reflux disease without esophagitis; F41.9 Anxiety disorder, unspecified; Z88.5 Allergy status to narcotic agent; Z88.8 Allergy status to other drugs, medicaments and biological substances
CPT/HCPCS: 99283

== ENCOUNTER 2024-10-19 08:22 | Emergency (ER) | payer MEDICARE ==
[~2024-10-19] VITALS: Ht 172.7 cm; Wt 74.5 kg
[2024-10-19 08:39] VITALS: BP 128/82; PULSE 75; RESP 18; TEMP 97.7; O2SAT 98
[2024-10-19] MEDS ORDERED: BUPR1FIL3 SL (09:19)
--- NOTE | 2024-10-19 09:21 | Physician Documentation ---
History of Present Illness ~ Chief Complaint: Headache Stated Complaint: HEAD PAIN Time Seen by MD: 09:02 OK to notify your PCP?: Yes Primary Medical Doctor: pedro pablo Source: patient Mode of Arrival: POV Exam Limitations: no limitations HPI 39-YEAR-OLD MALE PRESENTS FOR POSTERIOR HEADACHE FOR THE PAST COUPLE OF DAYS. HE HAS TRIED TO GET SEEN BY THE [facility] BUT HE HAD TO SCHEDULE AN APPOINTMENT THEY WERE FULL. HE IS THEN BEING ABLE TO BE SEEN AT THE [facility] WHICH ALSO HAD A FULL SCHEDULE BUT HE WAS ABLE TO SECURE AN APPOINTMENT FOR NEXT WEEK. HE IS REQUESTING A DOSE OF SUBOXONE WELL SOME IBUPROFEN. HE TOOK SOME TYLENOL PRIOR TO ARRIVAL WITH NO IMPROVEMENT IN HIS HEADACHE. LAST DOSE OF IBUPROFEN WAS 4 DAYS AGO. HE DENIES ANY VISION CHANGE, HEARING CHANGE, "WORST HEADACHE OF HIS LIFE OR OTHER CHANGES REGARDING HIS HEADACHE. Medication Reconciliation Allergies: Coded Allergies: tramadol (Unverified Allergy, Intermediate, SEIZURES, 10/13/24) chlorpromazine (Verified Adverse Reaction, Intermediate, FAINTING, 10/13/24) Scheduled Buprenorphine Hcl/Naloxone Hcl (Suboxone 4 Mg-1 Mg Sl Film), 1 STRIP SL DAILY Buprenorphine Hcl/Naloxone Hcl (Suboxone 8 Mg-2 Mg Sl Film), 1 STRIP SL BID Diclofenac Sodium (Diclofenac Sodium), 1 TABLET PO BID Gabapentin (Gabapentin), 1 TAB PO Q8H, (Reported) Gabapentin (Gabapentin), 1 TAB PO Q8H Ibuprofen (Ibuprofen), 1 TAB PO Q8H Ibuprofen (Ibu), 1 TAB PO Q4H Lidocaine (Lidoderm), 1 PATCH TOP DAILY Methocarbamol (Robaxin), 1 TAB PO Q8H Naproxen (Naproxen), 1 TAB PO Q12H Past Medical History Past Medical History: Headache, Migraine, GERD, Chronic Pain, Anxiety Past Surgical History: no surgical history Alcohol Use: None Drug Use: none Lives with: Alone Lives In: Homeless, Other Occupation: unemployed Review of Systems All Other Systems at this time: Reviewed and Negative Physical Exam Vital Signs: RN Vital Signs have been reviewed: Yes, Temperature: 97.7, Source: Temporal, Heart Rate: 75, Respiratory Rate: 18, BP: 128/82, Pulse Oximetry: 98, Weight: 74.500 Oxygen Flow Rate: 0 Pulse Oximetry Reflects: adequate oxygenation Physical Exam General: Alert, no apparent distress. HEENT: PERRL, EOMI, no injection, moist mucous membranes. Neck: Full range of motion. Respiratory: Lungs clear, no respiratory distress. Chest: No accessory muscle use. Cardiovascular: Regular rate and rhythm, no murmurs. Gastrointestinal: Soft, nontender, nondistended. Bowels sounds present. Extremities: Normal range of motion, no deformity. Neurologic: Oriented x4. Psychiatric: Normal mood and affect. Skin: Normal color, warm and dry. No edema, no ecchymosis. Progress Results/Orders Reviewed/noted all lab results: Yes Results/Orders Orders - ELIAZAR GATES POSITION CLASSIFICATION SPECIALIST Buprenorphine/Naloxone Sl Film (Suboxone (10/19/24 09:20) Ibuprofen Tablet (Motrin Tablet) (10/19/24 09:20) Vital Signs 10/19/24 08:39 Temp 97.7 Pulse 75 Resp 18 B/P (MAP) 128/82 Pulse Ox 98 O2 Flow Rate 0 Medical Decision Making Additional info obtained from: old records Findings I TOOK CARE OF THIS PATIENT LAST WEEK FOR THE SAME THING AND IBUPROFEN TYPICALLY DOES THE TRICK FOR HIS HEADACHES. HE DOES GO THROUGH PERIODS OF WITHDRAWAL FROM NOT HAVING HIS SUBOXONE WHICH HE NORMALLY TAKES TWICE DAILY 8 MG FILM. LAST DOSE WAS YESTERDAY. HE DOES HAVE INTERMITTENT HEADACHES WHEN HE SKIPS DOSES AND THAT IS WHAT IS HAPPENING THIS TIME AROUND. HE HAS NO CONCERNING FACTORS AROUND THE DESCRIPTION OF HIS HEADACHE. I GAVE HIM IBUPROFEN AND A DOSE OF SUBOXONE WHILE HERE IN THE DEPARTMENT AND SENT A PRESCRIPTION TO THE PHARMACY FOR SUBOXONE TO HELP GET HIM THROUGH THE WEEKEND TO HIS SCHEDULED APPOINTMENT. HE WAS GIVEN RETURN AND FOLLOW UP INSTRUCTIONS. WE DISCUSSED THAT HE NEEDS TO WORK ON SECURING REGULAR APPOINTMENTS FOR HIS SUBOXONE REFILLS THE ER IS NOT THE PROPER CHANNEL FOR REGULAR SUBOXONE REFILLS. Differential Dx:Considerations: Include: RODAS-Hypertensive, Carbon monoxide toxicity, Close head injuyr, CVA, Hemorrhage-Epidural, Mass lesion, Temporal arteritis, Trigeminal neuralgia Departure Disposition: 01 HOME / SELF CARE / HOMELESS Impression: Primary Impression: Headache Condition: Stable Discharge Instructions: Headache Additional Instructions: [facility] for your further Sub[facility]one treatment. Return back here for any new or worsening symptoms. Referrals: NO PRIMARY CARE PROVIDER (PCP) Prescriptions Buprenorphine Hcl/Naloxone Hcl (Suboxone 8 Mg-2 Mg Sl Film) 8 Mg-2 Mg Film 1 STRIP SL BID for 2 Days, #4 STRIP Prov: ELIAZAR GATES 10/19/24 Education Educated: Patient Educated regarding: diagnosis, treatment, prognosis, need for follow up Additional Comment Medical Screen Exam THIS PATIENT RECIEVED A MEDICAL SCREENING EXAMINATION. AFTER REVIEWING THE INDIVIDUAL'S MEDICAL COMPLAINTS WITH PRESENTING SYMPTOMS AND PERFORMING AN APPROPRIATE PHYSICAL EXAMINATION, IT WAS DETERMINED THAT NO IMMEDIATE LIFE- THREATENING EMERGENCY MEDICAL CONDITION IS PRESENT. THIS INDIVIDUAL IS ALSO NOT A WOMEN HAVING CONTRACTIONS. Signature Scribe Signature: . Attestation: Scribed for Eliazar Gatesp by Eliazar Gregory NP . 10/19/24 09:25 PARTS OF THIS NOTE WERE CREATED USING [employer] VOICE RECOGNITION SOFTWARE PROGRAM. WHILE EFFORTS WERE MADE TO CORRECT ANY MISTAKES MADE BY THIS VOICE RECOGNITION SOFTWARE PROGRAM, NONSENSICAL PHRASES MAY REMAIN IN THIS NOTE. IN ADDITION, THERE MAY BE ERRORS AND SYNTAX, GRAMMAR, CONTENT AND SPELLING. ELIAZAR GATES Oct 19, 2024 09:21
[2024-10-19] MEDS: buprenorphine/naloxone 8MG-2MG SUBlingual film SL ONE (09:36)
[2024-10-19] MEDS: ibuprofen tablet 400 MG TABLET PO ONE (09:36)
== END 2024-10-19 09:38 | disposition home or self-care (01) ==
LOC: ER 08:22
DX: G43.909 Migraine, unspecified, not intractable, without status migrainosus (principal); F41.9 Anxiety disorder, unspecified; K21.9 Gastro-esophageal reflux disease without esophagitis; Z88.5 Allergy status to narcotic agent; Z88.8 Allergy status to other drugs, medicaments and biological substances
CPT/HCPCS: 99283

== ENCOUNTER 2024-10-25 13:12 | Emergency (ER) | payer MEDICARE ==
[~2024-10-25] VITALS: Ht 172.7 cm; Wt 73.3 kg
[~2024-10-25 13:12] MED LIST changes: -NAPR-56 PO
[2024-10-25 14:01] LABS: MEAN PLATELET VOLUME 8.1 FL (7.4-10.4); RED CELL DISTRIBUTION WIDTH 13.5 % (11.5-14.5)
[2024-10-25 14:20] LABS: CREATININE 1.06 MG/DL (0.60-1.10); TOTAL CARBON DIOXIDE 27.3 MMOL/L (24-32); eCRCL 91 ML/MIN; eGFR 78 ML/MIN
[2024-10-25 15:29] LABS: LEUKOCYTE ESTERASE ,URINE NEGATIVE (Neg); NITRITES, URINE NEGATIVE (Neg); OCCULT BLOOD,URINE MODERATE (Neg)
[2024-10-25 15:34] LABS: UA COLLECTION TYPE NON-SPECIFIED
[2024-10-25 15:36] LABS: SQUAMOUS EPITHELIAL CELL,UR FEW /LPF (FEW)
[2024-10-25 15:37] LABS: MUCUS STRANDS NONE SEEN /LPF (Neg)
--- NOTE | 2024-10-25 17:38 | RADIOLOGY REPORT ---
COMPUTERIZED TOMOGRAPHY ABDOMEN AND PELVIS WITHOUT CONTRAST REASON FOR EXAM: mid low abdo pain, hematuria COMPARISON: None TECHNIQUE: Spiral scans were acquired from the diaphragm to the symphysis pubis without intravenous c ontrast administration. 2-D coronal and sagittal reformatted images were provided. Radiation optimiza tion: All CT scans at this facility use at least one of these dose optimization techniques: Automated exposure control mA and/or kV adjustment per patient size (includes targeted exams where dose is mat ched to clinical indication) or iterative reconstruction. RADIATION DOSE: CTDI: 12 mGy DLP: 563 mGy-cm FINDINGS: The lung bases are clear. There is no pleural effusion. There is no pericardial effusion. The spleen is not enlarged. The liver is normal in size and contour. Evaluation of the abdominal org ans is suboptimal in the absence of intravenous contrast. The gallbladder is surgically absent. Unen hanced appearance of the pancreas is unremarkable. The adrenal glands are normal. The kidneys are si milar in size. There is no hydronephrosis of either kidney. There is no renal, ureteral, or bladder calculus identified. There is no abdominal aortic aneurysm. The urinary bladder is grossly unremarka ble. The prostate and seminal vesicles are grossly unremarkable. There is trace fluid in the depende nt pelvis of uncertain etiology. The colonic stool burden is small. The appendix is normal. There is no distention of the small bowel to suggest obstruction. No pathologic lymphadenopathy is identified by size criteria. No acute osseous abnormality is identified. IMPRESSION: No renal, ureteral, or bladder calculus. No hydronephrosis of either kidney. Evaluation of the abdominal organs is suboptimal in the absence of intravenous contrast. Trace fluid in the dependent pelvis of uncertain etiology. This is abnormal in a male patient and no nspecific.
--- NOTE | 2024-10-25 17:41 | Physician Documentation ---
History of Present Illness Chief Complaint: Abdominal Pain Stated Complaint: HEAD AND STOMACH PAIN Time Seen by MD: 15:56 Primary Medical Doctor: pedro pablo Source: patient Mode of Arrival: Ambulatory Exam Limitations: no limitations HPI Patient in with mild lower abdominal pain today. Denies any back pain or dysuria. States he uses meth regularly and last use was yesterday. Somnolent in the ER. Medication Reconciliation Allergies: Coded Allergies: tramadol (Unverified Allergy, Intermediate, SEIZURES, 10/13/24) chlorpromazine (Verified Adverse Reaction, Intermediate, FAINTING, 10/13/24) Scheduled Buprenorphine Hcl/Naloxone Hcl (Suboxone 4 Mg-1 Mg Sl Film), 1 STRIP SL DAILY Diclofenac Sodium (Diclofenac Sodium), 1 TABLET PO BID Gabapentin (Gabapentin), 1 TAB PO Q8H, (Reported) Gabapentin (Gabapentin), 1 TAB PO Q8H Ibuprofen (Ibuprofen), 1 TAB PO Q8H Ibuprofen (Ibu), 1 TAB PO Q4H Lidocaine (Lidoderm), 1 PATCH TOP DAILY Methocarbamol (Robaxin), 1 TAB PO Q8H Discontinued Medications Buprenorphine Hcl/Naloxone Hcl (Suboxone 8 Mg-2 Mg Sl Film), 1 STRIP SL BID Discontinued Reason: Auto Discontinued Naproxen (Naproxen), 1 TAB PO Q12H Discontinued Reason: Auto Discontinued Past Medical History Past Medical History: Headache, Migraine, GERD, Chronic Pain, Anxiety Past Surgical History: no surgical history Smoking Status: Current every day smoker Alcohol Use: None Drug Use: none Lives with: Alone Lives In: Homeless, Other Occupation: unemployed Review of Systems All Other Systems at this time: Reviewed and Negative Physical Exam Vital Signs: Temperature: 99.2, Source: Temporal, Heart Rate: 70, Respiratory Rate: 16, BP: 116/87, Pulse Oximetry: 100, Weight: 73.300 Oxygen Flow Rate: 0 General Appearance Sleeping Neck: normal inspection, full range of motion Respiratory: lungs clear, no respiratory distress Chest: no accessory muscle use Cardiovascular: regular rate, rhythm, no edema Gastrointestinal: normal palpation, non-tender Extremities: normal range of motion Neurologic: oriented x4, memory intact Psychiatric: normal mood/affect Skin: normal color, warm/dry Progress Results/Orders Results/Orders Orders - NISA ROBERTSON MD Ct Abdomen Pelvis (10/25/24 16:40) Completed Orders - NISA ROBERTSON MD Cbc/Diff (10/25/24 13:25) BMP (10/25/24 13:25) Lipase (10/25/24 13:25) CMP (10/25/24 13:25) Ua W/Microscopic, Cult If Ind (10/25/24 15:20) Ct Abdomen Pelvis (10/25/24 16:40) Vital Signs 10/25/24 10/25/24 10/25/24 10/25/24 13:21 15:23 15:28 16:30 Temp 99.2 Pulse 112 75 68 Resp 16 16 18 B/P (MAP) 123/77 119/70 (86) 112/74 (87) Pulse Ox 97 97 97 O2 Flow Rate 0 0 0 10/25/24 10/25/24 16:45 17:30 Pulse 65 70 Resp 16 16 B/P (MAP) 114/70 (85) 116/87 (97) Pulse Ox 99 100 O2 Flow Rate 0 0 Laboratory Tests Test 10/25/24 13:33 10/25/24 15:20 White Blood Count 6.9 Red Blood Count 4.92 Hemoglobin 14.7 Hematocrit 43.2 Mean Corpuscular Volume 87.9 Mean Corpuscular Hemoglobin 29.8 Mean Corpuscular Hemoglobin Concent 34.0 Red Cell Distribution Width 13.5 Platelet Count 253 Mean Platelet Volume 8.1 Neutrophils (%) (Auto) 71.0 Lymphocytes (%) (Auto) 17.3 L Monocytes (%) (Auto) 9.5 Eosinophils (%) (Auto) 1.9 Basophils (%) (Auto) 0.3 Neutrophils # (Auto) 4.9 Lymphocytes # (Auto) 1.2 Monocytes # (Auto) 0.7 Eosinophils # (Auto) 0.1 Basophils # (Auto) 0.0 CBC Comment Sodium Level 145 Potassium Level 3.7 Chloride Level 106 Carbon Dioxide Level 27.3 Anion Gap 12 Blood Urea Nitrogen 13 Creatinine 1.06 Estimated GFR/1.73 m2 78 BUN/Creatinine Ratio 12.3 Glucose Level 142 H Calcium Level 8.7 Total Bilirubin 0.9 Aspartate Amino Transf (AST/SGOT) 19 Alanine Aminotransferase (ALT/SGPT) 21 Alkaline Phosphatase 75 Total Protein 7.1 Albumin 3.9 Globulin 3.2 Albumin/Globulin Ratio 1.2 Lipase 35 Chemistry Comments Urine Specimen Description Non-specified Urine Color Dark yellow Urine Clarity Slightly cloudy Urine pH 6.0 Urine Specific Dahinda 1.020 Urine Protein Negative Urine Glucose (UA) Negative Urine Ketones Negative Urine Occult Blood Moderate H Urine Nitrite Negative Urine Bilirubin Small Urine Urobilinogen 0.2 Urine Leukocyte Esterase Negative Urine RBC 50-100 Urine WBC 0-4 Urine Squamous Epithelial Cells Few Urine Bacteria Few Urine Mucus None seen Urine Culture Indicated Not ind Volume Urine Centrifuged 10 ml Urine Comment Medical Decision Making Additional Comments Patient does have hematuria but normal CBC and chemistry panel. CT scan without contrast reveals no findings. No pyelonephritis. Discharging home in good condition. Gave care instructions. If worsening return here. Otherwise follow up with PCP in 2 weeks for recheck of urinalysis. If continued hematuria may need referral to Urology or Nephrology. Departure Impression: Primary Impression: Abdominal pain Qualified Codes: R10.84 - Generalized abdominal pain Additional Impression: Hematuria Qualified Codes: R31.9 - Hematuria, unspecified Condition: Stable Discharge Instructions: Hematuria, Adult Additional Instructions: Follow up with your doctor in 2 weeks to get urine rechecked. If you continue to have blood you need to follow up with a specialist. Referrals: NO PRIMARY CARE PROVIDER (PCP) Education Educated: Patient Educated regarding: diagnosis, treatment, prognosis, need for follow up Signature Scribe Signature: No scribe used Attestation: No scribe used NISA ROBERTSON MD Oct 25, 2024 17:41
[2024-10-25 17:49] VITALS: BP 114/76; PULSE 66; RESP 18; TEMP 99.2; O2SAT 98
[2024-10-26] MEDS ORDERED: GABA-1555 PO (18:04)
[2024-10-26] MEDS ORDERED: IBUP-1984 PO (18:05)
== END 2024-10-25 17:45 | disposition home or self-care (01) ==
LOC: ER 13:13
DX: R10.30 Lower abdominal pain, unspecified (principal); R31.9 Hematuria, unspecified; R40.0 Somnolence; K21.9 Gastro-esophageal reflux disease without esophagitis; F15.90 Other stimulant use, unspecified, uncomplicated; F41.9 Anxiety disorder, unspecified; F17.200 Nicotine dependence, unspecified, uncomplicated; Z59.00 Homelessness unspecified; Z88.5 Allergy status to narcotic agent; Z88.8 Allergy status to other drugs, medicaments and biological substances
CPT/HCPCS: 36415; 74176; 80053; 81001; 83690; 85025; 99285

== ENCOUNTER 2024-10-26 01:08 | Emergency (ER) | payer MEDICARE ==
[~2024-10-26] VITALS: Ht 172.7 cm; Wt 80.0 kg
[2024-10-26 01:15] VITALS: BP 121/76; PULSE 89; RESP 16; O2SAT 97
--- NOTE | 2024-10-26 03:07 | Physician Documentation ---
History of Present Illness ~ Chief Complaint: Back Pain Stated Complaint: BACK PAIN Time Seen by MD: 03:06 Primary Medical Doctor: pedro pablo GOODRICH Patient presents to the emergency room complaining of back pain however when I asked him you only concern he has is he wants an anti-inflammatory for his headache. Medication Reconciliation Allergies: Coded Allergies: tramadol (Unverified Allergy, Intermediate, SEIZURES, 10/26/24) chlorpromazine (Verified Adverse Reaction, Intermediate, FAINTING, 10/26/24) Scheduled Buprenorphine Hcl/Naloxone Hcl (Suboxone 4 Mg-1 Mg Sl Film), 1 STRIP SL DAILY Diclofenac Sodium (Diclofenac Sodium), 1 TABLET PO BID Gabapentin (Gabapentin), 1 TAB PO Q8H, (Reported) Gabapentin (Gabapentin), 1 TAB PO Q8H Ibuprofen (Ibuprofen), 1 TAB PO Q8H Ibuprofen (Ibu), 1 TAB PO Q4H Lidocaine (Lidoderm), 1 PATCH TOP DAILY Methocarbamol (Robaxin), 1 TAB PO Q8H Discontinued Medications Buprenorphine Hcl/Naloxone Hcl (Suboxone 8 Mg-2 Mg Sl Film), 1 STRIP SL BID Discontinued Reason: Auto Discontinued Naproxen (Naproxen), 1 TAB PO Q12H Discontinued Reason: Auto Discontinued Past Medical History Past Medical History: Headache, Migraine, GERD, Chronic Pain, Anxiety Past Surgical History: no surgical history Alcohol Use: None Drug Use: none Lives with: Alone Lives In: Homeless, Other Occupation: unemployed Review of Systems ROS All review of systems negative except as per HPI Physical Exam Physical Exam Vital Signs: Temperature: 97.1, Source: Temporal, Heart Rate: 89, Respiratory Rate: 16, BP: 121/76, Pulse Oximetry: 97, Weight: 80.000 Oxygen Flow Rate: 0 Physical Exam General: Patient is sleeping comfortably curled up in a ball, easily arousable in no acute distress and sits up once awakened without limitation Head: Normocephalic and atraumatic. Eyes: Conjunctival normal. EOMI. PERRL. ENT: Mucous membranes moist. Neck: Supple, trachea is midline. Chest: Clear to auscultation bilaterally without rales, rhonchi, or wheezes. There is no accessory muscle use or retractions. Cardiac: RRR without murmurs, gallops, or rubs. Progress Results/Orders Results/Orders Vital Signs 10/26/24 01:15 Temp 97.1 Pulse 89 Resp 16 B/P (MAP) 121/76 Pulse Ox 97 O2 Flow Rate 0 Medical Decision Making Findings Patient presented to the emergency room as per HPI with some headache. Well known to our hospital for this with frequent visits for this. I do not feel he requires any imaging or labs Departure Disposition: HOME / SELF CARE / HOMELESS Impression: Primary Impression: Headache Condition: Stable Discharge Instructions: General Headache Without Cause Referrals: NO PRIMARY CARE PROVIDER (PCP) Signature Scribe Signature: No scribe Attestation: The note accurately reflects work and decisions made by me.Gutierrez Glez MD 10/26/24 03:11 GUTIERREZ GLEZ MD Oct 26, 2024 03:07
[2024-10-26 03:21] VITALS: TEMP 97.1
[2024-10-26] MEDS: ibuprofen tablet 400 MG TABLET PO ONE (03:23)
[2024-10-26] MEDS ORDERED: GABA-1555 PO (18:04)
[2024-10-26] MEDS ORDERED: IBUP-1984 PO (18:05)
== END 2024-10-26 03:27 | disposition home or self-care (01) ==
LOC: ER 01:08
DX: R51.9 Headache, unspecified (principal); M54.9 Dorsalgia, unspecified; F41.9 Anxiety disorder, unspecified; K21.9 Gastro-esophageal reflux disease without esophagitis
CPT/HCPCS: 99283

== ENCOUNTER 2024-10-26 16:45 | Emergency (ER) | payer MEDICARE ==
[~2024-10-26] VITALS: Ht 172.7 cm; Wt 79.5 kg
[2024-10-26 16:49] VITALS: BP 108/75; PULSE 83; RESP 16; TEMP 97.5; O2SAT 98
[2024-10-26] MEDS ORDERED: GABA-1555 PO (18:04)
--- NOTE | 2024-10-26 18:04 | Physician Documentation ---
HPI ~ General Chief Complaint: Medication Request Stated Complaint: HEAD PAIN Time Seen by MD: 17:27 Primary Medical Doctor: pedro pablo History of Present Illness HPI Comments Patient is a 39-year-old gentleman that presents to the emergency department for a medication refill. Patient reports that he is normally seen by providers at the [facility]. Was not able to see them today as they are not available. Patient reports that he has been without his normal medication for approximately a week and would like to have that refilled until he can follow up with a primary care provider at the [facility]. Medication Reconciliation Allergies: Coded Allergies: tramadol (Unverified Allergy, Intermediate, SEIZURES, 10/26/24) chlorpromazine (Verified Adverse Reaction, Intermediate, FAINTING, 10/26/24) Scheduled Buprenorphine Hcl/Naloxone Hcl (Suboxone 4 Mg-1 Mg Sl Film), 1 STRIP SL DAILY Diclofenac Sodium (Diclofenac Sodium), 1 TABLET PO BID Gabapentin (Gabapentin), 1 TAB PO Q8H, (Reported) Gabapentin (Gabapentin), 1 TAB PO Q8H Gabapentin (Gabapentin), 1 TAB PO Q8H Ibuprofen (Ibuprofen), 1 TAB PO Q8H Ibuprofen (Ibu), 1 TAB PO Q4H Ibuprofen* (Motrin*), 400 MG PO Q8H Lidocaine (Lidoderm), 1 PATCH TOP DAILY Methocarbamol (Robaxin), 1 TAB PO Q8H Discontinued Medications Buprenorphine Hcl/Naloxone Hcl (Suboxone 8 Mg-2 Mg Sl Film), 1 STRIP SL BID Discontinued Reason: Auto Discontinued Naproxen (Naproxen), 1 TAB PO Q12H Discontinued Reason: Auto Discontinued Past Medical History Past Medical History: Headache, Migraine, GERD, Chronic Pain, Anxiety Past Surgical History: no surgical history Alcohol Use: None Drug Use: none Lives with: Alone Lives In: Homeless, Other Occupation: unemployed Review of Systems ROS As stated above in the HPI, otherwise all systems are reviewed and negative. Physical Exam Physical Exam Vital Signs: Temperature: 97.5, Source: Temporal, Heart Rate: 83, Respiratory Rate: 16, BP: 108/75, Pulse Oximetry: 98, Weight: 79.550 Physical Exam VITALS: Reviewed and as above. GENERAL: Alert, no apparent distress. HEENT: Normocephalic, atraumatic, PERRL, EOMI, dry mucosa, no erythema RESPIRATORY: Lungs clear, normal breath sounds, no respiratory distress. CHEST: No accessory muscle use, no retractions CV: Regular rate, rhythm, no edema, no murmur, No: JVD GI: Soft, non-tender, bowels sounds present, no rebound, guarding, or rigidity BACK: No CVA tenderness, or swelling MUSCULOSKELETAL No deformities, no edema SKIN: Warm and dry, no rash NEURO: Oriented x4, No motor or sensory deficit PSYCH: Normal mood and affect, no agitation Progress Results/Orders Results/Orders Orders - ANTOINETTE STARR Ibuprofen Tablet (Motrin Tablet) (10/26/24 18:05) Gabapentin Capsule (Neurontin Capsule) (10/26/24 18:05) Vital Signs 10/26/24 16:49 Temp 97.5 Pulse 83 Resp 16 B/P (MAP) 108/75 Pulse Ox 98 Medical Decision Making Findings Patient is seen here in the emergency department for medication refill. Patient will follow up with [facility] early in the week. We will refill patient's medications for limited time. Patient will return to the emergency department if he has any additional concerns or needs. Differential Dx:Considerations: Include: Adverse circumstances, Economic, Psychosocial, Medical services unavail., Medication refill, Medication non- compliance, Other Departure Disposition: 01 HOME / SELF CARE / HOMELESS Impression: Primary Impression: General medical exam Additional Impression: Medication refill Condition: Stable Discharge Instructions: Medicine Refill at the Emergency Department Referrals: NO PRIMARY CARE PROVIDER (PCP) Prescriptions Ibuprofen* (Motrin*) 400 Mg Tablet 400 MG PO Q8H for 30 Days, #60 TAB Prov: ANTOINETTE STARR 10/26/24 Gabapentin (Gabapentin) 800 Mg Tablet 1 TAB PO Q8H for 30 Days, #90 TAB 0 Refills Prov: ANTOINETTE STARR 10/26/24 Education Educated: Patient Educated regarding: diagnosis, treatment, need for follow up Signature Scribe Signature: A Attestation: Scribed for Antoinette Starr by GABRIEL Guevara . 10/26/24 18:07 ANTOINETTE STARR Oct 26, 2024 18:04
[2024-10-26] MEDS ORDERED: IBUP-1984 PO (18:05)
[2024-10-26] MEDS: ibuprofen tablet 400 MG TABLET PO ONE (18:23)
== END 2024-10-26 19:09 | disposition home or self-care (01) ==
LOC: ER 16:45
DX: Z00.00 Encounter for general adult medical examination without abnormal findings (principal); Z76.0 Encounter for issue of repeat prescription; F41.9 Anxiety disorder, unspecified; Z88.5 Allergy status to narcotic agent; Z88.8 Allergy status to other drugs, medicaments and biological substances
CPT/HCPCS: 99283

== ENCOUNTER 2024-10-27 02:23 | Emergency (ER) | payer MEDICARE ==
[~2024-10-27] VITALS: Ht 175.3 cm; Wt 58.7 kg
[~2024-10-27 02:23] MED LIST changes: +IBUP-1984 PO
[2024-10-27 02:28] VITALS: BP 150/85; PULSE 70; RESP 15; TEMP 98.5; O2SAT 99
--- NOTE | 2024-10-27 02:35 | Physician Documentation ---
History of Present Illness ~ Chief Complaint: Headache Stated Complaint: HEADACHE Time Seen by MD: 02:27 Primary Medical Doctor: pedro pablo GOODRICH This is a 39-year-old gentleman with a innumerable visits to this emergency department for plethora of complaints, three visits in the last 24 hours, comes in for evaluation of ongoing chronic headache. He states that he had it for a very long time. This is not the worst headache of life. It isn't accompanied by vision or hearing changes, there was no focal deficits. The particular palliating or aggravating factors. Ibuprofen that he took has not helping. He states Toradol does not work for this headache. Denies any trauma. He has been seen in our emergency department for medication refill as well as a headache. Did not product picker prescribed medications. Medication Reconciliation Allergies: Coded Allergies: tramadol (Unverified Allergy, Intermediate, SEIZURES, 10/27/24) chlorpromazine (Verified Adverse Reaction, Intermediate, FAINTING, 10/27/24) Scheduled Buprenorphine Hcl/Naloxone Hcl (Suboxone 4 Mg-1 Mg Sl Film), 1 STRIP SL DAILY Diclofenac Sodium (Diclofenac Sodium), 1 TABLET PO BID Gabapentin (Gabapentin), 1 TAB PO Q8H, (Reported) Gabapentin (Gabapentin), 1 TAB PO Q8H Gabapentin (Gabapentin), 1 TAB PO Q8H Ibuprofen (Ibuprofen), 1 TAB PO Q8H Ibuprofen (Ibu), 1 TAB PO Q4H Ibuprofen* (Motrin*), 400 MG PO Q8H Lidocaine (Lidoderm), 1 PATCH TOP DAILY Methocarbamol (Robaxin), 1 TAB PO Q8H Discontinued Medications Buprenorphine Hcl/Naloxone Hcl (Suboxone 8 Mg-2 Mg Sl Film), 1 STRIP SL BID Discontinued Reason: Auto Discontinued Naproxen (Naproxen), 1 TAB PO Q12H Discontinued Reason: Auto Discontinued Past Medical History Past Medical History: Headache, Migraine, GERD, Chronic Pain, Anxiety Past Surgical History: no surgical history Alcohol Use: None Drug Use: none Lives with: Alone Lives In: Homeless, Other Occupation: unemployed Review of Systems ROS 10 point review of systems was performed and unless noted above in HPI is negative for acute process/complaint. Physical Exam Vital Signs: Temperature: 98.5, Source: Temporal, Heart Rate: 70, Respiratory Rate: 15, BP: 150/85, Pulse Oximetry: 99, Weight: 58.680 Physical Exam Physical examination: GENERAL: Awake, alert, oriented, GCS 15, no apparent distress, non-toxic appearing, answers questions, follows commands appropriately. Examined in triage. Disheveled, malodorous. HEENT: Atraumatic, normocephalic, pupils equal, extraocular muscles intact Active gross movements, sclerae anicteric, mucus membranes moist, no stridor. NECK: Midline, no JVD CARDIOVASCULAR: Good skin perfusion without evidence of pallor, mottling. PULMONARY: Nonlabored, symmetric chest rise, no audible wheezing, no accessory muscle use, no respiratory distress, speaking in full sentences. GASTROINTESTINAL: Not distended. NEUROLOGIC: Lucid with normal mental status. Normal facial symmetry. Moves all extremities symmetrically and with purpose. No truncal ataxia. Speech is fluid without evidence of dysarthria or aphasia, no focal deficits appreciated. EXTREMITIES: Acute deformities Skin: warm, dry PSYCHIATRIC: Normal affect, normal insight, normal concentration. Focused exam: [] Progress Results/Orders Results/Orders Vital Signs 10/27/24 02:28 Temp 98.5 Pulse 70 Resp 15 B/P (MAP) 150/85 Pulse Ox 99 Medical Decision Making Findings Facility Status: ED Holds, RME process The plan was discussed with the patient, who demonstrates clear understanding of the plan and is in agreement with the plan unless otherwise noted in the chart. All questions have been answered, all concerns were addressed unless otherwise documented. I was available throughout their ED stay for frequent reassessment and questions. Differential Diagnoses (considered and possible or likely): [Chronic headache, unlikely to be migraine, trigeminal neuralgia, cluster headache. No evidence of trauma. This is not the worst headache of life, highly unlikely to be subarachnoid. Unlikely to be subdural.] ??Differential Diagnoses (considered and unlikely, not requiring evaluation currently): [No evidence of lateralizing signs to suspect a stroke] MDM Data Please see HPI for the following: Independent Historians and external Records Review. Historian: [Patient] Independent Historians: ?[Record review, extensive] Medication Management: [Reviewed medication list] Social History and determinants: [Reviewed] Please see the body of the note for the following: Any independent interpretatio ns of ECG, imaging studies. All vitals signs/haemodynamics, ordered tests were independently reviewed and interpreted by myself. Nursing triage complaint and vitals reviewed, additional nursing notes were reviewed as available and I agree unless otherwise noted or documented in contradiction in the chart Vital Signs: Independently reviewed Labs: Independently interpreted Imaging: Independently interpreted Old Medical Records: Independently reviewed, see HPI for relevant summary and information Pulse Oximetry: [97%] interpreted as [normal on room air] by me Additionally notably showing: [Hemodynamically stable] Tests considered but not ordered include: [Hematologic workup and imaging has been considered but does not appear to be necessary given clinical nature of diagnosis] Social Determinants of Health Impact: Patient was evaluated in [facility], [facility] [place] to healthcare due to below par ratio of patient to medical providers. [] Comorbid Conditions Impacting Present Evaluation and Care/Treatment: [Chronic headache] Management Discussions with other Healthcare Providers: [None] Treatment and Disposition Medication Management (Given or considered): [Pain management]. See EMR for details Consideration for Hospitalization/Escalation/Deescalation of Care: Admission for observation has been considered, [however the patient is able to tolerate p.o., their symptoms are controlled, they are able to rely on oral medications, and their chief complaint/diagnosis can be managed on outpatient basis.] ?ED Course:?[Neoplasm as a cause of this chronic headache has been considered, however this does not constitute emergency and he can follow-up with his primary care. He does have primary care.] ?Shared decision making:?[Patient is hemodynamically stable for discharge home with follow with their primary care provider. [ ] Specific and cautious return precautions provided and discussed with full understanding. Any incidental findings were also discussed and follow up recommendations given. [] All questions answered. Patient/family were able to verbalize back return precautions. Patient/family agree to plan. Copies of imaging and laboratory studies were provided.] Code status:?FULL Please see the full Electronic Medical Record for full details of nursing documentation, medications list, other records of complete past medical history and conditions, vital signs, laboratory studies, and any radiologic study interpretations by radiologists. Portions of this note were completed using [employer] dictation software and as a result there may exist minor errors in spelling. I have reviewed elements of past family and social history and agree as included in note. Departure Disposition: HOME / SELF CARE / HOMELESS Impression: Primary Impression: Chronic headache Additional Impression Text You were evaluated for a chronic headache. You reported no changes to this headache. You must follow-up with the primary care provider, who needs to manage all of your chronic complaints. Please feel free to return to emergency department if you are experiencing an emergency. Condition: Improved Discharge Instructions: Headache Referrals: NO PRIMARY CARE PROVIDER (PCP) Education Educated: Patient Educated regarding: diagnosis, treatment, prognosis, need for follow up Signature Scribe Signature: No scribe Attestation: This note accurately reflects clinical decisions, work performed by myself, DO COOKIE Vazquez NICHOLAS M DO Oct 27, 2024 02:35
== END 2024-10-27 02:43 | disposition home or self-care (01) ==
LOC: ER 02:24
DX: G43.909 Migraine, unspecified, not intractable, without status migrainosus (principal); F41.9 Anxiety disorder, unspecified; Z88.5 Allergy status to narcotic agent; Z88.8 Allergy status to other drugs, medicaments and biological substances
CPT/HCPCS: 99281; 99282

== ENCOUNTER 2024-10-29 01:08 | Emergency (ER) | payer MEDICARE ==
[~2024-10-29] VITALS: Ht 172.7 cm; Wt 75.2 kg
[2024-10-29 01:15] VITALS: BP 116/98; PULSE 89; RESP 16; TEMP 98.5; O2SAT 97
--- NOTE | 2024-10-29 01:30 | Physician Documentation ---
History of Present Illness ~ Chief Complaint: Headache Stated Complaint: HEADACHE Time Seen by MD: 01:21 OK to notify your PCP?: Yes Primary Medical Doctor: pedro pablo Source: patient, RN/, RN notes reviewed, old records Mode of Arrival: POV Exam Limitations: no limitations HPI This patient states he has chronic headaches. It has for the last two months he has been here frequently for evaluation. Patient states be takes Motrin and sometimes it helps but seems to be here more days than not. In addition to that he states he has had a CAT scan but review of the medical record shows no prior CAT scan. He states that the must have had that at [facility]. He has had a CAT scan in the past at other areas he is new to the area for the last two months. He does not have a primary care physician he has never seen a formal neurologist in the past. He is not on migraine medications. Patient is asking for crackers Medication Reconciliation Allergies: Coded Allergies: tramadol (Unverified Allergy, Intermediate, SEIZURES, 10/27/24) chlorpromazine (Verified Adverse Reaction, Intermediate, FAINTING, 10/27/24) Scheduled Buprenorphine Hcl/Naloxone Hcl (Suboxone 4 Mg-1 Mg Sl Film), 1 STRIP SL DAILY Diclofenac Sodium (Diclofenac Sodium), 1 TABLET PO BID Gabapentin (Gabapentin), 1 TAB PO Q8H, (Reported) Gabapentin (Gabapentin), 1 TAB PO Q8H Gabapentin (Gabapentin), 1 TAB PO Q8H Ibuprofen (Ibuprofen), 1 TAB PO Q8H Ibuprofen (Ibu), 1 TAB PO Q4H Ibuprofen* (Motrin*), 400 MG PO Q8H Lidocaine (Lidoderm), 1 PATCH TOP DAILY Methocarbamol (Robaxin), 1 TAB PO Q8H Discontinued Medications Buprenorphine Hcl/Naloxone Hcl (Suboxone 8 Mg-2 Mg Sl Film), 1 STRIP SL BID Discontinued Reason: Auto Discontinued Past Medical History Past Medical History: Headache, Migraine, GERD, Chronic Pain, Anxiety Past Surgical History: no surgical history Alcohol Use: None Drug Use: none Lives with: Alone Lives In: Homeless, Other Occupation: unemployed Review of Systems All Other Systems at this time: Reviewed and Negative Physical Exam Vital Signs: RN Vital Signs have been reviewed: Yes, Temperature: 98.5, Source: Temporal, Heart Rate: 89, Respiratory Rate: 16, BP: 116/98, Pulse Oximetry: 97, Weight: 75.200 Oxygen Flow Rate: 0 Physical Exam General: The patient is well developed, well nourished, nontoxic appearing and is in no acute distress. Skin: Lambert, warm and dry with no rashes. HEENT: Head was normocephalic and atraumatic. Eyes - pupils equal, round, reactive to light and accommodation. Extraocular movements were intact. Conjunctivae were nonicteric. Neck: Supple and nontender. There was no jugular venous distention, lymphadenopathy, thyromegaly or masses. Chest: Clear to auscultation bilaterally without wheezes, rales or rhonchi. No accessory muscle use. Heart: Rate regular and rhythmic. S1, S2. No murmurs. Palpation of the chest wall was normal. Abdomen: Soft, nontender and nondistended. Positive bowel sounds. Extremities: No cyanosis, clubbing or edema. The patient moves all extremities. Pulses were equal and symmetric. Neurologic: Motor sensory grossly intact Psychologic: The patient was oriented to person, place and time. The patient demonstrated appropriate judgement and insight. Progress Results/Orders Reviewed/noted all lab results: Yes Results/Orders Vital Signs 10/29/24 01:15 Temp 98.5 Pulse 89 Resp 16 B/P (MAP) 116/98 Pulse Ox 97 O2 Flow Rate 0 Re-Evaluation Re-Evaluation : Re-Evaluation: Unchanged Progress Patient was seen and examined. Patient is given reassurance. Patient needs to follow up with the Neurology for formal treatment. Patient probably may benefit from a medication holiday. However this should be done most likely through the recommendations of Neurology. Patient was given a handout to the [facility] so that he can establish relationship with a primary care physician and Neurology workup. Patient was given crackers and discharged home no medications were provided Medical Decision Making Additional info obtained from: old records Differential Dx:Considerations: Include: RODAS-Cluster, RODAS-Migraine, RODAS- Hypertensive, RODAS-Muscular contraction, RODAS-Post lumbar puncture, Carbon monoxide toxicity, Close head injuyr, CVA, Fever induced, Hemorrhage-Epidural, Hemorrhage-Intracerebral, Hemorrhage-Subarachnoid, Hemorrhage-Subdural, Mass lesion, Meningitis, Post-traumtic, Pseudotumor cerebri, Sinusitis, Temporal arteritis, Trigeminal neuralgia, Other Departure Disposition: HOME / SELF CARE / HOMELESS Impression: Primary Impression: Migraine Qualified Codes: G43.919 - Migraine, unspecified, intractable, without status migrainosus Discharge Instructions: Migraine Headache Referrals: NO PRIMARY CARE PROVIDER (PCP) Education Educated: Patient Educated regarding: diagnosis Signature Scribe Signature: x Attestation: RYAN Graham MD Oct 29, 2024 01:30
== END 2024-10-29 01:36 | disposition home or self-care (01) ==
LOC: ER 01:09
DX: G43.919 Migraine, unspecified, intractable, without status migrainosus (principal); Z88.5 Allergy status to narcotic agent; Z88.8 Allergy status to other drugs, medicaments and biological substances
CPT/HCPCS: 99281; 99282

== ENCOUNTER 2024-11-04 17:13 | Emergency (ER) | payer MEDICARE ==
[~2024-11-04] VITALS: Ht 172.7 cm; Wt 75.0 kg
--- NOTE | 2024-11-04 19:56 | Physician Documentation ---
History of Present Illness ~ Chief Complaint: Headache Stated Complaint: HEADACHE Time Seen by MD: 19:29 Primary Medical Doctor: pedro pablo GOODRICH Patient is seen today with complaints of a tension headache stating it started just earlier today. Patient has not tried any Tylenol or ibuprofen yet. Patient denies any changes in vision or hearing or nausea, vomiting, diarrhea or chest pain or shortness of breath or abdominal pain. Patient has no other concern or complaint at this time. Medication Reconciliation Allergies: Coded Allergies: tramadol (Unverified Allergy, Intermediate, SEIZURES, 11/04/24) chlorpromazine (Verified Adverse Reaction, Intermediate, FAINTING, 11/04/24) Scheduled Buprenorphine Hcl/Naloxone Hcl (Suboxone 4 Mg-1 Mg Sl Film), 1 STRIP SL DAILY Diclofenac Sodium (Diclofenac Sodium), 1 TABLET PO BID Gabapentin (Gabapentin), 1 TAB PO Q8H, (Reported) Gabapentin (Gabapentin), 1 TAB PO Q8H Gabapentin (Gabapentin), 1 TAB PO Q8H Ibuprofen (Ibuprofen), 1 TAB PO Q8H Ibuprofen (Ibu), 1 TAB PO Q4H Ibuprofen* (Motrin*), 400 MG PO Q8H Lidocaine (Lidoderm), 1 PATCH TOP DAILY Methocarbamol (Robaxin), 1 TAB PO Q8H Past Medical History Past Medical History: Headache, Migraine, GERD, Chronic Pain, Anxiety Past Surgical History: no surgical history Alcohol Use: None Drug Use: none Lives with: Alone Lives In: Homeless, Other Occupation: unemployed Review of Systems Constitutional: Denies: chills, fever, weakness Eyes: Denies: pain, blurred vision ENT: Denies: ear pain, nose pain, throat pain, mouth pain Respiratory: Denies: cough, shortness of breath Cardiovascular: Denies: chest pain, palpitations Gastrointestinal: Denies: abdominal pain, nausea, vomiting Genitourinary: Denies: burning, dysuria Male Genitalia: Denies: penile discharge, testicular pain Neurological: Denies: headache, dizziness Musculoskeletal: Denies: pain, swelling Integumentary: Denies: rash, lesions Allergic/Immunologic: Denies: hives, itching Hematologic/Lymphatic: Denies: no symptoms reported Psychiatric: Denies: depression, anxiety Physical Exam Vital Signs: Temperature: 98.9, Source: Oral, Heart Rate: 88, Respiratory Rate: 18, BP: 115/66, Pulse Oximetry: 97, Weight: 75.000 Physical Exam General: Awake and Alert, no acute distress. HEENT: PERRLA, EOM intact bilaterally. Conjunctiva pink, Sclera clear, Mucus Membranes moist. Neck: Supple without masses and tenderness. Resp: Unlabored. Lungs clear to auscultation bilaterally. Heart: Regular Rate and rhythm, normal S1 and S2 without murmur, rub or gallop. Abdomen: Soft and non tender no organomegaly Extremities: No cyanosis,clubbing or edema. Skin: Warm and Dry. Progress Results/Orders Results/Orders Vital Signs 11/04/24 17:17 Temp 98.9 Pulse 88 Resp 18 B/P (MAP) 115/66 Pulse Ox 97 Medical Decision Making Findings Patient is seen today with complaints of a tension headache stating it started just earlier today. Patient has not tried any Tylenol or ibuprofen yet. Patient denies any changes in vision or hearing or nausea, vomiting, diarrhea or chest pain or shortness of breath or abdominal pain. Patient has no other concern or complaint at this time. Patient Was given ibuprofen 400 mg by mouth in the ED today. Patient's history and physical exam findings are very benign. Patient was given some fluids and some crackers in his sandwich upon request. Prescription of ibuprofen sent to patient's pharmacy. Patient will return to ED with any worsening, concerning or changing symptoms. Departure Disposition: 01 HOME / SELF CARE / HOMELESS Impression: Primary Impression: Headache Qualified Codes: G44.209 - Tension-type headache, unspecified, not intractable Condition: Improved Discharge Instructions: Headache Additional Instructions: Patient Was given ibuprofen 400 mg by mouth in the ED today. Patient's history and physical exam findings are very benign. Patient was given some fluids and some crackers in his sandwich upon request. Prescription of ibuprofen sent to patient's pharmacy. Patient will return to ED with any worsening, concerning or changing symptoms. Referrals: NO PRIMARY CARE PROVIDER (PCP) Prescriptions Ibuprofen (Ibuprofen) 600 Mg Tablet 1 TAB PO Q8H for pain for 10 Days, #30 TAB 0 Refills with food Prov: ELLIS AVILA 11/04/24 Signature Scribe Signature: No scribe Attestation: No scribe ELLIS AVILA Nov 04, 2024 19:56
[2024-11-04] MEDS ORDERED: IBUP600T52 PO (19:58)
[2024-11-04] MEDS: ibuprofen tablet 400 MG TABLET PO STA (20:08)
[2024-11-04 20:11] VITALS: BP 111/60; PULSE 86; RESP 16; TEMP 98.6; O2SAT 99
== END 2024-11-04 20:13 | disposition home or self-care (01) ==
LOC: ER 17:14
DX: G43.909 Migraine, unspecified, not intractable, without status migrainosus (principal); K21.9 Gastro-esophageal reflux disease without esophagitis; Z88.5 Allergy status to narcotic agent; Z88.8 Allergy status to other drugs, medicaments and biological substances
CPT/HCPCS: 99283

== ENCOUNTER 2024-11-14 07:06 | Emergency (ER) | payer MEDICARE ==
[~2024-11-14] VITALS: Ht 172.7 cm; Wt 72.1 kg
--- NOTE | 2024-11-14 07:17 | Physician Documentation ---
History of Present Illness General Chief Complaint: Headache Stated Complaint: HEART BURN Time Seen by MD: 07:17 [facility] History of Present Illness Initial Comments The patient is a 39-year-old male with multiple visits to the emergency room in the past complaining of a headache which she states is chronic over last three months as well as some heartburn that he states he has developed over last 4-5 hours. Patient's symptoms are mild and persistent. Patient states he has a headache for last three months. The patient states he did have some nausea. Patient denies any vomiting or fevers. Medication Reconciliation Allergies: Coded Allergies: tramadol (Unverified Allergy, Intermediate, SEIZURES, 11/04/24) chlorpromazine (Verified Adverse Reaction, Intermediate, FAINTING, 11/04/24) Scheduled Buprenorphine Hcl/Naloxone Hcl (Suboxone 4 Mg-1 Mg Sl Film), 1 STRIP SL DAILY Diclofenac Sodium (Diclofenac Sodium), 1 TABLET PO BID Gabapentin (Gabapentin), 1 TAB PO Q8H, (Reported) Gabapentin (Gabapentin), 1 TAB PO Q8H Gabapentin (Gabapentin), 1 TAB PO Q8H Ibuprofen (Ibuprofen), 1 TAB PO Q8H Ibuprofen (Ibu), 1 TAB PO Q4H Ibuprofen (Ibuprofen), 1 TAB PO Q8H Ibuprofen* (Motrin*), 400 MG PO Q8H Lidocaine (Lidoderm), 1 PATCH TOP DAILY Methocarbamol (Robaxin), 1 TAB PO Q8H Past Medical History Past Medical History: Headache, Migraine, GERD, Chronic Pain, Anxiety Past Surgical History: no surgical history Smoking: Cigarettes Alcohol Use: None Drug Use: none Lives with: Alone Lives In: Homeless, Other Occupation: unemployed Review of Systems All Other Systems at this time: Reviewed and Negative Physical Exam Physical Exam Vital Signs: Temperature: 97.5, Source: Temporal, Heart Rate: 95, Respiratory Rate: 15, BP: 127/82, Pulse Oximetry: 97, Weight: 72.100 Physical Exam VITALS: Reviewed and as above. GENERAL: Alert, no apparent distress. HEENT: Normocephalic, atraumatic, PERRL, EOMI, dry mucosa, no erythema RESPIRATORY: Lungs clear, normal breath sounds, no respiratory distress. CHEST: No accessory muscle use, no retractions CV: Regular rate, rhythm, no edema, no murmur, No: JVD GI: Soft, non-tender, bowels sounds present, no rebound, guarding, or rigidity BACK: No CVA tenderness, or swelling MUSCULOSKELETAL: No deformities, no edema SKIN: Warm and dry, no rash NEURO: Oriented x4, No motor or sensory deficit PSYCH: Normal mood and affect, no agitation Progress Results/Orders Results/Orders Completed Orders - DOROTHY SORTO MD Mag & Alum Hydrox/Simeth Susp (Maalox Or (11/14/24 07:35) Acetaminophen 325mg Tablet (Tylenol Tabl (11/14/24 07:35) Vital Signs 11/14/24 11/14/24 07:08 07:39 Temp 97.5 97.5 Pulse 95 95 Resp 15 15 B/P (MAP) 127/82 127/82 Pulse Ox 97 95 Medical Decision Making Findings 39-year-old male sleeping when I entered the room patient states he has got some heartburn as well as a headache, patient has been here multiple times at similar time of the day. The patient is well-appearing in no distress previous hospitalizations have been reviewed. Vital signs were reviewed. Pulse oximetry was interpreted as adequate and normal patient was given a dose of Maalox and he was also given some Tylenol the patient will be discharged. Departure Disposition: HOME / SELF CARE / HOMELESS Impression: Primary Impression: Chronic headache Qualified Codes: G44.229 - Chronic tension-type headache, not intractable Discharge Instructions: Headache Referrals: NO PRIMARY CARE PROVIDER (PCP) Signature Scribe Signature: no scribe Attestation: The note accurately reflects work and decisions made by me.Dorothy Sorto MD 11/14/24 15:37 DOROTHY SORTO MD Nov 14, 2024 07:17
[2024-11-14] MEDS: mag hydrox/Alum hydrox/simeth 30ml oral suspension PO ONE (07:35)
[2024-11-14 07:39] VITALS: BP 127/82; PULSE 95; RESP 15; TEMP 97.5; O2SAT 95
== END 2024-11-14 07:41 | disposition home or self-care (01) ==
LOC: ER 07:06
DX: G43.909 Migraine, unspecified, not intractable, without status migrainosus (principal); K21.9 Gastro-esophageal reflux disease without esophagitis; F41.9 Anxiety disorder, unspecified; F17.210 Nicotine dependence, cigarettes, uncomplicated; Z88.5 Allergy status to narcotic agent; Z88.8 Allergy status to other drugs, medicaments and biological substances
CPT/HCPCS: 99283

== ENCOUNTER 2024-11-16 17:10 | Emergency (ER) | payer MEDICARE ==
[~2024-11-16] VITALS: Ht 172.7 cm; Wt 71.0 kg
[2024-11-16 17:19] VITALS: BP 122/74; PULSE 94; O2SAT 96
--- NOTE | 2024-11-16 17:34 | Physician Documentation ---
History of Present Illness ~ Chief Complaint: Headache Stated Complaint: HEADACHE Time Seen by MD: 18:21 Primary Medical Doctor: pedro pablo [facility] M[facility] patient seen and examined in triage. He has multiple medical complaints. He states he has head and neck pain. Denies known trauma. He states he frequently blacks out so he is unsure if he had trauma or not. No current complaints of syncope. He states he is dizzy and feels like he will pass out. Complains of shortness for breath. States he has not used methamphetamine for the past week. Used weed today. Patient re-evaluated: Complains of continued headache described as throbbing that started today. He is dizzy. He states he blacked out for 2-3 hours. He is unsure how long. Complains of shortness for breath, subjective fevers. He states his shortness for breath feels like he is hyperventilating and can not take a good breath. He states he has had sharp pain in his heart for the past two days. Medication Reconciliation Allergies: Coded Allergies: tramadol (Unverified Allergy, Intermediate, SEIZURES, 11/04/24) chlorpromazine (Verified Adverse Reaction, Intermediate, FAINTING, 11/04/24) Scheduled Buprenorphine Hcl/Naloxone Hcl (Suboxone 4 Mg-1 Mg Sl Film), 1 STRIP SL DAILY Diclofenac Sodium (Diclofenac Sodium), 1 TABLET PO BID Gabapentin (Gabapentin), 1 TAB PO Q8H, (Reported) Gabapentin (Gabapentin), 1 TAB PO Q8H Gabapentin (Gabapentin), 1 TAB PO Q8H Ibuprofen (Ibuprofen), 1 TAB PO Q8H Ibuprofen (Ibu), 1 TAB PO Q4H Ibuprofen (Ibuprofen), 1 TAB PO Q8H Ibuprofen* (Motrin*), 400 MG PO Q8H Lidocaine (Lidoderm), 1 PATCH TOP DAILY Methocarbamol (Robaxin), 1 TAB PO Q8H Past Medical History Past Medical History: Headache, Migraine, GERD, Chronic Pain, Anxiety Past Surgical History: no surgical history Alcohol Use: None Drug Use: none Lives with: Alone Lives In: Homeless, Other Occupation: unemployed Review of Systems ROS Patient complains of multiple complaints. Headache, dizziness, shortness for breath, chest pain. Subjective fevers. No cough. Was asked, but otherwise denies review of systems. Physical Exam Vital Signs: RN Vital Signs have been reviewed: Yes, Temperature: 97.0, Source: Temporal, Heart Rate: 94, Respiratory Rate: 19, BP: 122/74, Pulse Oximetry: 96, Weight: 71.000 Pulse Oximetry Reflects: adequate oxygenation Physical Exam Medical screening examined triage: Patient is awake, alert, oriented. He is diaphoretic. Vital signs are stable. Lungs clear to auscultation bilaterally. General: Awake, alert, oriented. No apparent distress Pupils equal and reactive to light and accountability. No nystagmus. Respiratory: Lungs are clear to auscultation bilaterally. No respiratory distress. Chest: Normal shape and size. No accessory muscle use. Cardiovascular: Regular rate and rhythm. S1-S2. No murmur, gallop, rub. Gastrointestinal: Abdomen is soft. Nontender to palpation. Bowel sounds present. Extremities: No lower extremity edema, cyanosis or clubbing. Neurologic: Alert and oriented x4. Nonfocal Psychiatric: Normal mood and affect. Skin: Normal color. Warm and dry. Progress Progress Note 1835: Patient re-evaluated. He is eating a sandwich and juice. No nausea, vomiting or abdominal pain. States he continues to have a headache but states he feels somewhat better. Results/Orders Results/Orders Vital Signs 11/16/24 11/16/24 11/16/24 17:19 19:05 19:31 Temp 97.0 97.0 Pulse 94 Resp 19 18 B/P (MAP) 122/74 Pulse Ox 96 Laboratory Tests Test 11/16/24 17:41 White Blood Count 5.9 Red Blood Count 5.03 Hemoglobin 14.9 Hematocrit 44.9 Mean Corpuscular Volume 89.2 Mean Corpuscular Hemoglobin 29.6 Mean Corpuscular Hemoglobin Concent 33.2 Red Cell Distribution Width 13.8 Platelet Count 281 Mean Platelet Volume 7.7 Neutrophils (%) (Auto) 61.9 Lymphocytes (%) (Auto) 25.0 Monocytes (%) (Auto) 8.9 Eosinophils (%) (Auto) 3.6 Basophils (%) (Auto) 0.6 Neutrophils # (Auto) 3.7 Lymphocytes # (Auto) 1.5 Monocytes # (Auto) 0.5 Eosinophils # (Auto) 0.2 Basophils # (Auto) 0.0 CBC Comment Sodium Level 143 Potassium Level 3.5 Chloride Level 106 Carbon Dioxide Level 30.6 Anion Gap 6 L Blood Urea Nitrogen 15 Creatinine 0.87 Estimated GFR/1.73 m2 > 90 BUN/Creatinine Ratio 17.2 Glucose Level 143 H Calcium Level 8.4 L Troponin I High Sensitivity 7 Pro-B-Type Natriuretic Peptide 48 Albumin 3.6 Chemistry Comments EKG/XRAY/CT/US/VASC/MRI EKG : Intepreting Monitor?: Yes Additional Comment EKG November 16, 20241740: Normal sinus rhythm rate of 89. Normal axis. No acute ST changes. Chest X-Ray : Interpreted By: both Views: 1 VIEW Indication: shortness of breath Lungs: normal Mediastinum: normal Ribs/Bones: normal Abdomen: normal Impression: no acute disease Additional Comments [address], [place], [facility] [address] DIAGNOSTIC RADIOLOGY Patient: BARB BULLARD Medical Record: [id number] [facility] : 1985, Age: 39 Sex: Male Location: ER Patient Status: [facility] ER Service Date/Time: 11/16/241723 Ordering Physician: SANDY CARVER MD Exam: CHEST,SINGLE VIEW CHEST RADIOGRAPH Indication: CP Technique: DI CHEST,SINGLE VIEW Comparison: None FINDINGS: The cardiac silhouette is unremarkable. The lungs demonstrate no pulmonary airspace consolidation. The pulmonary vasculature is unremarkable. There is no pleural effusion. There is no pneumothorax. IMPRESSION: No pulmonary airspace consolidation. Electronically Signed by:SVITLANA TAMAYO MD Date & Time: 11/16/241741 Dictated by: SVITLANA TAMAYO MD Dictation date and time: 11/16/241731 Primary Care Provider: NO PRIMARY CARE PROVIDER cc: SANDY CARVER MD ~ Medical Decision Making Findings Patient complaining of headache. He has history of the same. Also complaining of frequent episodes of blacking out. He is up and ambulatory in his room. Eyes are without nystagmus. Neurologic exam is normal. There was no evidence of acute neurologic emergency. His headache is not consistent with a migraine or cluster headaches. No clinical suspicion for mass, bleed or any other acute neurologic emergency. He was given medication for his headache. Encouraged to quit using drugs. Encouraged to stay well hydrated. He was provided with a sandwich at his request. Differential Dx:Considerations: Include: RODAS-Cluster, RODAS-Migraine, RODAS- Hypertensive, Close head injuyr, CVA, Fever induced, Hemorrhage-Epidural, Hemorrhage-Intracerebral, Hemorrhage-Subdural, Mass lesion, Meningitis Departure Time of Disposition: 19:05 Disposition: 01 HOME / SELF CARE / HOMELESS Impression: Primary Impression: Headache Qualified Codes: G44.229 - Chronic tension-type headache, not intractable Condition: Stable Additional Instructions: Laboratory evaluation was unremarkable. There is no evidence of infection. Your chest x-ray was normal. Lungs are clear on exam. Your EKG is also normal. Recommend that you quit using drugs. Stay well hydrated. Return for new or worsening symptoms. Referrals: NO PRIMARY CARE PROVIDER (PCP) Education Educated: Patient Educated regarding: diagnosis, treatment, need for follow up Signature Scribe Signature: No scribe Attestation: The note accurately reflects work and decisions made by me.Jose Carlos Gavin - OPAL 11/17/24 18:20 This note was created with the assistance of voice recognition software whereby errors in grammar, syntax, and/or spelling may have occurred despite active proofreading efforts by the author. Please do not hesitate to contact the provider for clarification or for questions regarding the content of this document. JOSE CARLOS GAVIN NP Nov 16, 2024 17:34
--- NOTE | 2024-11-16 17:41 | RADIOLOGY REPORT ---
CHEST RADIOGRAPH Indication: CP Technique: DI CHEST,SINGLE VIEW Comparison: None FINDINGS: The cardiac silhouette is unremarkable. The lungs demonstrate no pulmonary airspace consolidation. The pulmonary vasculature is unremarkable. There is no pleural effusion. There is no pneumothorax. IMPRESSION: No pulmonary airspace consolidation.
--- NOTE | 2024-11-16 17:43 | ELECTROCARDIOGRAPH REPORT ---
[facility] Test Date: 2024-11-16 Test Time: 17:41:39 Pat Name: BARB BULLARD Department: [facility]- Patient ID: [facility]-[id number] Room: Gender: M Director Index: : 1985 Requested By: SANDY CARVER Order Number: [id number] Reading MD: Measurements Intervals [place] Rate: 89 P: 74 HI: 147 QRS: 92 QRSD: 85 T: 52 QT: 332 QTc: 404 Interpretive Statements Sinus rhythm Borderline right axis deviation Baseline wander in lead(s) V4 Please click the below link to view image of tracing.
[2024-11-16 17:51] LABS: MEAN PLATELET VOLUME 7.7 FL (7.4-10.4); RED CELL DISTRIBUTION WIDTH 13.8 % (11.5-14.5)
[2024-11-16 18:18] LABS: CREATININE 0.87 MG/DL (0.60-1.10); PRO BRAIN NATRIURETIC PEPTIDE 48 PG/ML (0-125); TOTAL CARBON DIOXIDE 30.6 MMOL/L (24-32); eCRCL 111 ML/MIN; eGFR > 90 ML/MIN
[2024-11-16 19:05] VITALS: RESP 18
[2024-11-16 19:31] VITALS: TEMP 97
== END 2024-11-16 19:33 | disposition home or self-care (01) ==
LOC: ER 17:10
DX: R51.9 Headache, unspecified (principal); G89.29 Other chronic pain; K21.9 Gastro-esophageal reflux disease without esophagitis; F41.9 Anxiety disorder, unspecified; G43.909 Migraine, unspecified, not intractable, without status migrainosus; Z56.0 Unemployment, unspecified; Z59.00 Homelessness unspecified; Z60.2 Problems related to living alone; Z88.5 Allergy status to narcotic agent; Z88.8 Allergy status to other drugs, medicaments and biological substances; Z79.899 Other long term (current) drug therapy
CPT/HCPCS: 36415; 71045; 80048; 83880; 84484; 85025; 93005; 99285

== ENCOUNTER 2024-11-22 20:23 | Emergency (ER) | payer MEDICARE ==
[~2024-11-22] VITALS: Ht 172.7 cm; Wt 75.0 kg
[2024-11-22 20:25] VITALS: BP 127/77; PULSE 94; RESP 16; TEMP 97.4; O2SAT 97
[2024-11-22] MEDS ORDERED: LOPE-144 PO (20:29)
[2024-11-22] MEDS ORDERED: ONDA-243 PO (20:29)
--- NOTE | 2024-11-22 20:30 | Physician Documentation ---
History of Present Illness General Stated Complaint: STOMACH PAIN Time Seen by MD: 20:28 Primary Medical Doctor: pedro pablo History of Present Illness Initial Comments 39-year-old male presents to the emergency department with with a 1-2 day history of vague complaint of nausea or vomiting diarrhea. No reported fever and/or bloody stool. No reported rash. Patient is able to tolerate fluids. Asked to episode of vomiting and only 4 hours ago. Medication Reconciliation Allergies: Coded Allergies: tramadol (Unverified Allergy, Intermediate, SEIZURES, 11/04/24) chlorpromazine (Verified Adverse Reaction, Intermediate, FAINTING, 11/04/24) Scheduled Buprenorphine Hcl/Naloxone Hcl (Suboxone 4 Mg-1 Mg Sl Film), 1 STRIP SL DAILY Diclofenac Sodium (Diclofenac Sodium), 1 TABLET PO BID Gabapentin (Gabapentin), 1 TAB PO Q8H, (Reported) Gabapentin (Gabapentin), 1 TAB PO Q8H Gabapentin (Gabapentin), 1 TAB PO Q8H Ibuprofen (Ibuprofen), 1 TAB PO Q8H Ibuprofen (Ibu), 1 TAB PO Q4H Ibuprofen (Ibuprofen), 1 TAB PO Q8H Ibuprofen* (Motrin*), 400 MG PO Q8H Lidocaine (Lidoderm), 1 PATCH TOP DAILY Methocarbamol (Robaxin), 1 TAB PO Q8H Scheduled PRN Loperamide HCl (Imodium A-D), 1 TAB PO Q4H PRN for constipation ONDANSETRON ODT 4mg tablet (Ondansetron Odt), 1 TAB PO Q6H PRN PRN for nausea/vomiting Past Medical History Past Medical History: Headache, Migraine, GERD, Chronic Pain, Anxiety Past Surgical History: no surgical history Smoking: Cigarettes Alcohol Use: None Drug Use: none Lives with: Alone Lives In: Homeless, Other Occupation: unemployed Review of Systems All Other Systems at this time: Reviewed and Negative Constitutional: Denies: fever, chills GI: Reports: abdominal pain, nausea, vomiting, diarrhea Physical Exam Physical Exam General Appearance: alert, WD/WN, mild distress Head: normal inspection Face: normal inspection Pupils/EOM/Fundus: PERRLA Neck: non-tender Cardiovascular: normal peripheral pulses Gastrointestinal: non-tender Back: normal inspection Extremities: normal range of motion Neurologic: oriented x4 Motor / Sensory: no motor deficit, no sensory deficit Psychiatric: normal mood/affect Skin: normal color, warm/dry; No: rash Progress Results/Orders Results/Orders Completed Orders - JULIA CASTAÑEDA Loperamide Capsule (Imodium Capsule) (11/22/24 20:30) Ondansetron Disint. Tablet (Zofran Odt T (11/22/24 20:30) Medications Received in ER Medications (Trade) Dose Ordered Sig/Conor Route PRN Reason Start Time Stop Time Status Last Admin Dose Admin (Imodium capsule) 2 mg ONCE ONCE PO 11/22/24 20:30 11/22/24 20:31 DC 11/22/24 20:36 2 MG (Zofran ODT tablet) 4 mg ONCE ONCE PO 11/22/24 20:30 11/22/24 20:31 DC 11/22/24 20:36 4 MG Vital Signs 11/22/24 20:25 Temp 97.4 Pulse 94 Resp 16 B/P (MAP) 127/77 Pulse Ox 97 O2 Flow Rate 0 Medical Decision Making Differential Diagnosis Examination history consistent with acute viral gastroenteritis without clinical suspicion for serious abdominal pathology such as perforation, ischemia, infla mmatory bowel disease. Patient received Zofran ODT and Imodium in the emergency department. P.o. challenge successful without vomiting. Discharged to obtain prescription medications in advance diet as tolerated. Safely discharged in the emergency department. Departure Disposition: 01 HOME / SELF CARE / HOMELESS Impression: Primary Impression: Gastroenteritis Condition: Improved Additional Instructions: Please obtain and begin medications as directed. Tonight in the emergency department you received medicine for nausea or vomiting diarrhea. Please continue to advance your diet slowly as tolerated. Thank you for visiting [facility]. Referrals: NO PRIMARY CARE PROVIDER (PCP) Prescriptions Loperamide HCl (Imodium A-D) 2 Mg Tablet 1 TAB PO Q4H PRN for constipation, #16 TAB 2 tabs after first loose stool 1 after each loose stool up to 8 pills a day Prov: JULIA CASTAÑEDA 11/22/24 ONDANSETRON ODT 4mg tablet (ONDANSETRON ODT) 4 Mg Tab.rapdis 1 TAB PO Q6H PRN PRN for nausea/vomiting for 4 Days, #16 TAB 0 Refills Prov: JULIA CASTAÑEDA 11/22/24 Education Educated: Patient Educated regarding: diagnosis, treatment Signature Scribe Signature: . Attestation: . JULIA CASTAÑEDA PAC Nov 22, 2024 20:30
[2024-11-22] MEDS: loperamide 2mg capsule PO ONE (20:36)
[2024-11-22] MEDS: ondansetron 4mg rapidly disintigrating tab PO ONE (20:36)
== END 2024-11-22 20:47 | disposition home or self-care (01) ==
LOC: ER 20:24
DX: K52.9 Noninfective gastroenteritis and colitis, unspecified (principal); G89.29 Other chronic pain; G43.909 Migraine, unspecified, not intractable, without status migrainosus; K21.9 Gastro-esophageal reflux disease without esophagitis; F41.9 Anxiety disorder, unspecified; F17.210 Nicotine dependence, cigarettes, uncomplicated; Z88.5 Allergy status to narcotic agent; Z88.8 Allergy status to other drugs, medicaments and biological substances; Z59.00 Homelessness unspecified; Z56.0 Unemployment, unspecified; Z60.2 Problems related to living alone
CPT/HCPCS: 99283

== ENCOUNTER 2024-11-26 15:59 | Emergency (ER) | payer MEDICARE, MEDICAID ==
[~2024-11-26] VITALS: Ht 175.3 cm; Wt 72.4 kg
[~2024-11-26 15:59] MED LIST changes: +LOPE-144 PO; +ONDA-243 PO
--- NOTE | 2024-11-26 19:32 | Physician Documentation ---
History of Present Illness ~ Chief Complaint: Head Pain Stated Complaint: HEAD PAIN Time Seen by MD: 19:06 Primary Medical Doctor: pedro pablo [facility] 39-year-old male presents to the ED with two days of migraine symptoms. He states he has a light sensitivity and a pounding headache. Denies any recent meth use or cardiac symptoms or dizziness Medication Reconciliation Allergies: Coded Allergies: tramadol (Unverified Allergy, Intermediate, SEIZURES, 11/26/24) chlorpromazine (Verified Adverse Reaction, Intermediate, FAINTING, 11/26/24) Scheduled Buprenorphine Hcl/Naloxone Hcl (Suboxone 4 Mg-1 Mg Sl Film), 1 STRIP SL DAILY Diclofenac Sodium (Diclofenac Sodium), 1 TABLET PO BID Gabapentin (Gabapentin), 1 TAB PO Q8H, (Reported) Gabapentin (Gabapentin), 1 TAB PO Q8H Gabapentin (Gabapentin), 1 TAB PO Q8H Ibuprofen (Ibuprofen), 1 TAB PO Q8H Ibuprofen (Ibu), 1 TAB PO Q4H Ibuprofen (Ibuprofen), 1 TAB PO Q8H Lidocaine (Lidoderm), 1 PATCH TOP DAILY Methocarbamol (Robaxin), 1 TAB PO Q8H Scheduled PRN Loperamide HCl (Imodium A-D), 1 TAB PO Q4H PRN for constipation ONDANSETRON ODT 4mg tablet (Ondansetron Odt), 1 TAB PO Q6H PRN PRN for nausea/vomiting Discontinued Medications Ibuprofen* (Motrin*), 400 MG PO Q8H Discontinued Reason: Auto Discontinued Past Medical History Past Medical History: Headache, Migraine, GERD, Chronic Pain, Anxiety Past Surgical History: no surgical history Alcohol Use: None Drug Use: none Lives with: Alone Lives In: Homeless, Other Occupation: unemployed Review of Systems All Other Systems at this time: Reviewed and Negative ROS As stated above in the HPI, otherwise all systems are reviewed and negative. Physical Exam Vital Signs: Temperature: 97.6, Source: Oral, Heart Rate: 85, Respiratory Rate: 18, BP: 128/84, Pulse Oximetry: 96, Weight: 72.400 Oxygen Flow Rate: 0 Physical Exam General: Alert, no apparent distress. Respiratory: Lungs clear, no respiratory distress. Cardiovascular: Regular rate and rhythm, no murmurs. Gastrointestinal: Soft, nontender, nondistended. Bowels sounds present. Neurologic: Oriented x4. Psychiatric: Normal mood and affect. Skin: Normal color, warm and dry. No edema, no ecchymosis. Progress Results/Orders Results/Orders Completed Orders - KM GAGE NP Ibuprofen Tablet (Motrin Tablet) (11/26/24 19:30) Medications Received in ER Medications (Trade) Dose Ordered Sig/Conor Route PRN Reason Start Time Stop Time Status Last Admin Dose Admin (Motrin tablet) 800 mg ONCE ONCE PO 11/26/24 19:30 11/26/24 19:31 DC 11/26/24 19:45 800 MG Vital Signs 11/26/24 11/26/24 16:30 19:55 Temp 97.6 98.6 Pulse 85 80 Resp 18 18 B/P (MAP) 128/84 126/82 Pulse Ox 96 99 O2 Flow Rate 0 Medical Decision Making Findings Patient treated for migraine. He does not present with concerning symptoms that would require a CT scan. Advised him to return to the ED if she has any worsening symptoms Differential Dx:Considerations: Include: RODAS-Cluster, RODAS-Migraine, RODAS- Hypertensive, RODAS-Muscular contraction, RODAS-Post lumbar puncture, Carbon monoxide toxicity, Close head injuyr, CVA, Fever induced, Hemorrhage-Epidural, Hemorrhage-Intracerebral, Hemorrhage-Subarachnoid, Hemorrhage-Subdural, Mass lesion, Meningitis, Post-traumtic, Pseudotumor cerebri, Sinusitis, Temporal arteritis, Trigeminal neuralgia, Other Departure Disposition: 01 HOME / SELF CARE / HOMELESS Impression: Primary Impression: Headache Condition: Stable Discharge Instructions: Headache Referrals: NO PRIMARY CARE PROVIDER (PCP) Signature Scribe Signature: f Attestation: Scribed for Km Gage Np by Km Gregory NP . 11/26/24 22:35 KM GAGE NP Nov 26, 2024 19:32
[2024-11-26] MEDS: ibuprofen tablet 400 MG TABLET PO ONE (19:45)
[2024-11-26 19:55] VITALS: BP 126/82; PULSE 80; RESP 18; TEMP 98.6; O2SAT 99
== END 2024-11-26 19:56 | disposition home or self-care (01) ==
LOC: ER 16:00
DX: G43.909 Migraine, unspecified, not intractable, without status migrainosus (principal); G89.29 Other chronic pain; K21.9 Gastro-esophageal reflux disease without esophagitis; F41.9 Anxiety disorder, unspecified; Z88.8 Allergy status to other drugs, medicaments and biological substances; Z88.5 Allergy status to narcotic agent; Z79.899 Other long term (current) drug therapy; Z56.0 Unemployment, unspecified; Z59.00 Homelessness unspecified; Z60.2 Problems related to living alone
CPT/HCPCS: 99283

== ENCOUNTER 2024-12-01 21:22 | Emergency (ER) | payer MEDICARE, MEDICAID ==
[~2024-12-01] VITALS: Ht 172.7 cm; Wt 69.5 kg
[~2024-12-01 21:22] MED LIST changes: -IBUP-1984 PO
[2024-12-01 21:34] VITALS: BP 130/88; PULSE 73; RESP 16; TEMP 97.6; O2SAT 100
[2024-12-01 21:57] LABS: MEAN PLATELET VOLUME 7.7 FL (7.4-10.4); RED CELL DISTRIBUTION WIDTH 13.5 % (11.5-14.5)
[2024-12-01 22:13] LABS: CREATININE 0.84 MG/DL (0.60-1.10); TOTAL CARBON DIOXIDE 31.5 MMOL/L (24-32); eCRCL 115 ML/MIN; eGFR > 90 ML/MIN
== END 2024-12-02 02:20 | disposition left against medical advice (07) ==
LOC: ER 21:22
DX: R10.9 Unspecified abdominal pain (principal); R11.10 Vomiting, unspecified; Z53.21 Procedure and treatment not carried out due to patient leaving prior to being seen by health care provider; Z88.5 Allergy status to narcotic agent; Z88.8 Allergy status to other drugs, medicaments and biological substances
CPT/HCPCS: 36415; 80053; 83690; 85025; 99281

== ENCOUNTER 2025-01-11 01:07 | Emergency (ER) | payer MEDICARE, MEDICAID ==
[~2025-01-11] VITALS: Ht 172.7 cm; Wt 75.0 kg
[2025-01-11 01:11] VITALS: BP 143/86; PULSE 98; RESP 20; O2SAT 98
--- NOTE | 2025-01-11 03:28 | Physician Documentation ---
History of Present Illness ~ General Chief Complaint: Multiple Medical Complaints Stated Complaint: HEADACHE Time Seen by MD: 03:27 Primary Medical Doctor: [facility] History of Present Illness Initial Comments 31-year-old male, history of polysubstance abuse, presenting with multiple complaints He tells me that he has multiple concerns today. He tells me he has a headache, wonders if he could have a tension headache. He states it is generalized, and seems worse the muscles towards the back of his head neck. No head injury. No vision changes. Vomiting. He also tells me he has chronic neuropathy pain. He has been out of his Neurontin, and wonders if he can get a prescription for this. He also reports feeling restless and anxious. He does admit to using methamphetamines today. He denies any other symptoms. No fevers or infectious symptoms. Medication Reconciliation Allergies: Coded Allergies: tramadol (Unverified Allergy, Intermediate, SEIZURES, 11/26/24) chlorpromazine (Verified Adverse Reaction, Intermediate, FAINTING, 11/26/24) Scheduled Buprenorphine Hcl/Naloxone Hcl (Suboxone 4 Mg-1 Mg Sl Film), 1 STRIP SL DAILY Diclofenac Sodium (Diclofenac Sodium), 1 TABLET PO BID Gabapentin (Gabapentin), 1 TAB PO Q8H, (Reported) Gabapentin (Gabapentin), 1 TAB PO Q8H Gabapentin (Gabapentin), 1 TAB PO Q8H Gabapentin (Neurontin), 1 TAB PO Q8H Ibuprofen (Ibuprofen), 1 TAB PO Q8H Ibuprofen (Ibu), 1 TAB PO Q4H Ibuprofen (Ibuprofen), 1 TAB PO Q8H Lidocaine (Lidoderm), 1 PATCH TOP DAILY Methocarbamol (Robaxin), 1 TAB PO Q8H Scheduled PRN Loperamide HCl (Imodium A-D), 1 TAB PO Q4H PRN for constipation ONDANSETRON ODT 4mg tablet (Ondansetron Odt), 1 TAB PO Q6H PRN PRN for nausea/vomiting Past Medical History Past Medical History: Headache, Migraine, GERD, Chronic Pain, Anxiety Past Surgical History: no surgical history Alcohol Use: None Drug Use: none Lives with: Alone Lives In: Homeless, Other Occupation: unemployed Review of Systems Constitutional: Denies: fever Neurological: Reports: headache Physical Exam Physical Exam Vital Signs: Temperature: 98.0, Heart Rate: 98, Respiratory Rate: 20, BP: 143/86, Pulse Oximetry: 98, Weight: 75.000 Physical Exam General: This is a thin young male, with psychomotor agitation, but not in distress HEENT: Atraumatic, oropharynx appears dry Heart: Mild tachycardic, appears regular Lungs: normal work of breathing, normal oxygen saturation on room air Neuro: Alert and oriented Psychiatric: Labile affect, psychomotor agitation, appears likely intoxicated with a stimulant, but is otherwise cooperative Progress Results/Orders Results/Orders Completed Orders - JULIA CASTLE MD Ibuprofen Tablet (Motrin Tablet) (01/11/25 03:35) Vital Signs 01/11/25 01/11/25 01:11 03:51 Temp 98.0 98.0 Pulse 98 Resp 20 B/P (MAP) 143/86 Pulse Ox 98 Medical Decision Making Additional information obtaine: N/A Findings na Differential Diagnosis Substance use, tension headache, migraine headache, intracranial hemorrhage, dehydration, electrolyte derangement, chronic pain Assessment The patient presents with multiple vague complaints. On exam he has no concerning findings. His headache seems benign, I doubt intracranial hemorrhage, mass, or other more dangerous process. He will be given ibuprofen. His only other request was for a prescription for his gabapentin, which was given. I do not feel that any further workup or testing is indicated. Many of his symptoms seem likely related to methamphetamine use. He will be discharged with ongoing outpatient management. Departure Time of Disposition: 03:33 Disposition: 01 HOME / SELF CARE / HOMELESS Impression: Primary Impression: Headache Condition: Stable Referrals: NO PRIMARY CARE PROVIDER (PCP) Prescriptions Gabapentin (Neurontin) 800 Mg Tablet 1 TAB PO Q8H for 30 Days, #90 TAB 0 Refills Prov: JULIA CASTLE MD 01/11/25 Education Educated: Patient Educated regarding: diagnosis, need for follow up Signature Scribe Signature: na Attestation: JULIA Shields MD Jan 11, 2025 03:28
[2025-01-11] MEDS ORDERED: GABA800T PO (03:33)
[2025-01-11] MEDS: ibuprofen tablet 400 MG TABLET PO ONE (03:50)
[2025-01-11 03:51] VITALS: TEMP 98
== END 2025-01-11 04:02 | disposition home or self-care (01) ==
LOC: ER 01:07
DX: G43.909 Migraine, unspecified, not intractable, without status migrainosus (principal); G62.9 Polyneuropathy, unspecified; K21.9 Gastro-esophageal reflux disease without esophagitis; F41.9 Anxiety disorder, unspecified; F15.90 Other stimulant use, unspecified, uncomplicated; F19.11 Other psychoactive substance abuse, in remission; G89.29 Other chronic pain; Z88.5 Allergy status to narcotic agent; Z88.8 Allergy status to other drugs, medicaments and biological substances; Z79.899 Other long term (current) drug therapy; Z59.00 Homelessness unspecified; Z56.0 Unemployment, unspecified; Z60.2 Problems related to living alone
CPT/HCPCS: 99283

== ENCOUNTER 2025-01-21 14:23 | Emergency (ER) | payer MEDICARE, MEDICAID ==
[~2025-01-21] VITALS: Ht 170.2 cm; Wt 75.5 kg
[~2025-01-21 14:23] MED LIST changes: +GABA800T PO
[2025-01-21 14:24] VITALS: BP 113/83; PULSE 89; RESP 17; TEMP 97; O2SAT 97
--- NOTE | 2025-01-21 14:54 | ELECTROCARDIOGRAPH REPORT ---
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 Behzad Arias Measurements Intervals [place] Rate: 78 P: 60 [place]: 151 QRS: 85 QRSD: 90 T: 57 QT: 387 QTc: 441 Interpretive Statements Sinus rhythm Electronically Signed On 01-21-2025 19:08:[address] Behzad Arias Please click the below link to view image of tracing.
--- NOTE | 2025-01-21 15:36 | Physician Documentation ---
History of Present Illness General Chief Complaint: See Chief Complaint Stated Complaint: MULTIPLE MED COMPLAINTS Time Seen by MD: 14:37 Primary Medical Doctor: pedro pablo History of Present Illness Initial Comments This is a 31-year-old male who gets daily methadone maintenance presents to the emergency department with a requesting methadone clinic for interval EKG. Also patient is seeking some food resources. He would like to get establish with local primary care for consideration of Neurontin for anxiousness. Otherwise has no other complaints in needs no other resources. He is well alert and oriented Medication Reconciliation Allergies: Coded Allergies: tramadol (Unverified Allergy, Intermediate, SEIZURES, 11/26/24) chlorpromazine (Verified Adverse Reaction, Intermediate, FAINTING, 11/26/24) Scheduled Buprenorphine Hcl/Naloxone Hcl (Suboxone 4 Mg-1 Mg Sl Film), 1 STRIP SL DAILY Diclofenac Sodium (Diclofenac Sodium), 1 TABLET PO BID Gabapentin (Gabapentin), 1 TAB PO Q8H, (Reported) Gabapentin (Gabapentin), 1 TAB PO Q8H Gabapentin (Gabapentin), 1 TAB PO Q8H Gabapentin (Neurontin), 1 TAB PO Q8H Ibuprofen (Ibuprofen), 1 TAB PO Q8H Ibuprofen (Ibu), 1 TAB PO Q4H Ibuprofen (Ibuprofen), 1 TAB PO Q8H Lidocaine (Lidoderm), 1 PATCH TOP DAILY Methocarbamol (Robaxin), 1 TAB PO Q8H Scheduled PRN Loperamide HCl (Imodium A-D), 1 TAB PO Q4H PRN for constipation ONDANSETRON ODT 4mg tablet (Ondansetron Odt), 1 TAB PO Q6H PRN PRN for nausea/vomiting Past Medical History Past Medical History: Headache, Migraine, GERD, Chronic Pain, Anxiety Past Surgical History: no surgical history Smoking: Cigarettes Alcohol Use: None Drug Use: none Lives with: Alone Lives In: Homeless, Other Occupation: unemployed Review of Systems All Other Systems at this time: Reviewed and Negative Physical Exam Physical Exam Vital Signs: RN Vital Signs have been reviewed: Yes, Temperature: 97.0, Heart Rate: 89, Respiratory Rate: 17, BP: 113/83, Pulse Oximetry: 97, Weight: 75.450 Oxygen Flow Rate: 0 General Appearance: alert, WD/WN, other (Mildly anxious) Head: normal inspection Face: normal inspection Pupils/EOM/Fundus: PERRLA Respiratory: no respiratory distress Chest: no accessory muscle use Extremities: normal range of motion Neurologic: oriented x4 Motor / Sensory: no motor deficit Psychiatric: normal mood/affect Skin: normal color, warm/dry Progress Results/Orders Results/Orders Vital Signs 01/21/25 14:24 Temp 97.0 Pulse 89 Resp 17 B/P (MAP) 113/83 Pulse Ox 97 O2 Flow Rate 0 Medical Decision Making Additional information obtaine: N/A Findings EKG obtained for patient and copy was provided for him and placed in an envelope. EKG shows normal sinus rhythm without ectopy in the normal CO interval QTC with a normal limits I have expressed the importance of getting aligned with [facility] to get a primary care physician for consideration of Neurontin. He has received food resources in the emergency department other resources were addressed. He is safely discharged from the emergency. Differential Diagnosis QTC lengthening, social boundaries, food and home insecurities Departure Disposition: HOME / SELF CARE / HOMELESS Impression: Primary Impression: Methadone dependence Condition: Stable Additional Instructions: Tonight in the emergency department you had your in her full EKG obtained. I have placed a copy in an envelope for you to presents to the methadone clinic. You has been provided food resources. Please establish care at [facility] for consideration is that beginning Neurontin. Thank you for visiting emergency department [facility]. Referrals: NO PRIMARY CARE PROVIDER (PCP) Education Educated: Patient Educated regarding: diagnosis, treatment, prognosis, need for follow up Signature Scribe Signature: . Attestation: . JULIA CASTAÑEDA Jan 21, 2025 15:36 TRENT MATHIS MD Jan 21, 2025 15:46
== END 2025-01-21 16:12 | disposition home or self-care (01) ==
LOC: ER 14:24
DX: F11.20 Opioid dependence, uncomplicated (principal); G89.29 Other chronic pain; G43.909 Migraine, unspecified, not intractable, without status migrainosus; K21.9 Gastro-esophageal reflux disease without esophagitis; F41.9 Anxiety disorder, unspecified; F17.210 Nicotine dependence, cigarettes, uncomplicated; Z88.5 Allergy status to narcotic agent; Z88.8 Allergy status to other drugs, medicaments and biological substances; Z59.00 Homelessness unspecified; Z79.899 Other long term (current) drug therapy; Z56.0 Unemployment, unspecified; Z60.2 Problems related to living alone
CPT/HCPCS: 93005; 99283

== ENCOUNTER 2025-02-03 13:01 | Emergency (ER) | payer MEDICARE, MEDICAID ==
[~2025-02-03] VITALS: Ht 170.2 cm; Wt 34.3 kg
[2025-02-03 13:07] VITALS: TEMP 97.8
--- NOTE | 2025-02-03 13:42 | RADIOLOGY REPORT ---
DI CHEST,TWO VIEWS CLINICAL HISTORY: r/o pneumonia COMPARISON: None TECHNIQUE: Frontal and lateral view of the chest was obtained FINDINGS: Lines and Tubes: None Lungs: No focal consolidation. Pleura: No effusion. No pneumothorax. Cardiomediastinal contours: Unremarkable Bones: No acute osseous abnormality. IMPRESSION: 1. No acute cardiopulmonary disease.
[2025-02-03 13:58] LABS: MEAN PLATELET VOLUME 7.2 FL (7.4-10.4); RED CELL DISTRIBUTION WIDTH 13.9 % (11.5-14.5)
[2025-02-03 14:21] LABS: CREATININE 0.61 MG/DL (0.60-1.10); PRO BRAIN NATRIURETIC PEPTIDE 216 PG/ML (0-125); TOTAL CARBON DIOXIDE 28.9 MMOL/L (24-32); eCRCL 80 ML/MIN; eGFR > 90 ML/MIN
--- NOTE | 2025-02-03 15:45 | Physician Documentation ---
History of Present Illness ~ Chief Complaint: Cold, cough & congestion Stated Complaint: HEADACHE/POSS INFECTION Time Seen by MD: 15:36 Primary Medical Doctor: standfield Mode of Arrival: Ambulatory HPI This is a 39-year-old male who presents with a longstanding productive cough that he reports has been worse in the last month, patient reports that three we eks ago he was diagnosed with a lung infection and prescribed amoxicillin however he was not able to finish this prescription in his concerned about continued infection to his lungs. Patient reports that he has a every day smoker and frequently smokes methamphetamine. Patient reports no other acute symptoms or concerns including no recent fevers. Medication Reconciliation Allergies: Coded Allergies: tramadol (Unverified Allergy, Intermediate, SEIZURES, 11/26/24) chlorpromazine (Verified Adverse Reaction, Intermediate, FAINTING, 11/26/24) Scheduled Buprenorphine Hcl/Naloxone Hcl (Suboxone 4 Mg-1 Mg Sl Film), 1 STRIP SL DAILY Diclofenac Sodium (Diclofenac Sodium), 1 TABLET PO BID Gabapentin (Gabapentin), 1 TAB PO Q8H, (Reported) Gabapentin (Gabapentin), 1 TAB PO Q8H Gabapentin (Gabapentin), 1 TAB PO Q8H Gabapentin (Neurontin), 1 TAB PO Q8H Ibuprofen (Ibuprofen), 1 TAB PO Q8H Ibuprofen (Ibu), 1 TAB PO Q4H Ibuprofen (Ibuprofen), 1 TAB PO Q8H Ibuprofen* (Motrin*), 1 TAB PO Q8H Lidocaine (Lidoderm), 1 PATCH TOP DAILY Methocarbamol (Robaxin), 1 TAB PO Q8H Scheduled PRN Loperamide HCl (Imodium A-D), 1 TAB PO Q4H PRN for constipation ONDANSETRON ODT 4mg tablet (Ondansetron Odt), 1 TAB PO Q6H PRN PRN for nausea/vomiting Past Medical History Past Medical History: Headache, Migraine, GERD, Chronic Pain, Anxiety Past Surgical History: no surgical history Alcohol Use: None Drug Use: none Lives with: Alone Lives In: Homeless, Other Occupation: unemployed Review of Systems ROS As stated above in the HPI, otherwise all systems are reviewed and negative. Physical Exam Vital Signs: Temperature: 97.8, Heart Rate: 71, Respiratory Rate: 16, BP: 114/67, Pulse Oximetry: 98, Weight: 34.300 Oxygen Flow Rate: 0 Physical Exam VITALS: Reviewed and as above. GENERAL: Alert, nontoxic appearing, no apparent distress. RESPIRATORY: No increased work of breathing, no respiratory distress, speaking in full clear sentences, clear lung sounds in all pimentel CV: Regular rate and rhythm no murmur Progress Results/Orders Results/Orders Orders - VARINDER ASH LEASING MACHINE TENDER Chest,Two Views (02/03/25 13:12) Culture Blood (02/03/25 13:12) Saline Lock (02/03/25 13:12) Oxygen (02/03/25 13:12) Substance Use Navigator (02/03/25 16:04) Completed Orders - VARINDER ASH LEASING MACHINE TENDER Chest,Two Views (02/03/25 13:12) Cbc/Diff (02/03/25 13:12) BMP (02/03/25 13:12) PBNP (02/03/25 13:12) Ibuprofen Tablet (Motrin Tablet) (02/03/25 16:05) Medications Received in ER Medications (Trade) Dose Ordered Sig/Conor Route PRN Reason Start Time Stop Time Status Last Admin Dose Admin (Motrin tablet) 400 mg ONCE ONCE PO 02/03/25 16:05 02/03/25 16:06 DC 02/03/25 16:15 400 MG Vital Signs 02/03/25 02/03/25 02/03/25 02/03/25 13:07 15:01 15:11 16:21 Temp 97.8 Pulse 65 71 67 Resp 16 14 B/P (MAP) 123/71 114/67 (83) 108/73 Pulse Ox 98 98 96 O2 Flow Rate 0 Laboratory Tests Test 02/03/25 13:44 White Blood Count 9.4 Red Blood Count 4.34 L Hemoglobin 12.9 L Hematocrit 38.1 L Mean Corpuscular Volume 87.7 Mean Corpuscular Hemoglobin 29.8 Mean Corpuscular Hemoglobin Concent 34.0 Red Cell Distribution Width 13.9 Platelet Count 357 Mean Platelet Volume 7.2 L Neutrophils (%) (Auto) 74.1 Lymphocytes (%) (Auto) 14.3 L Monocytes (%) (Auto) 8.9 Eosinophils (%) (Auto) 2.3 Basophils (%) (Auto) 0.4 Neutrophils # (Auto) 7.0 Lymphocytes # (Auto) 1.3 Monocytes # (Auto) 0.8 Eosinophils # (Auto) 0.2 Basophils # (Auto) 0.0 CBC Comment Sodium Level 138 Potassium Level 3.9 Chloride Level 102 Carbon Dioxide Level 28.9 Anion Gap 7 L Blood Urea Nitrogen 15 Creatinine 0.61 Estimated GFR/1.73 m2 > 90 BUN/Creatinine Ratio 24.6 H Glucose Level 86 Calcium Level 8.5 Pro-B-Type Natriuretic Peptide 216 H Albumin 3.4 Chemistry Comments Microbiology Date/Time Source Procedure Growth Status 02/03/25 13:44 Blood Arm Left Blood Culture - Preliminary NEGATIVE (LESS THAN 24 HOURS) Resulted EKG/XRAY/CT/US/VASC/MRI Chest X-Ray : Additional Comments Exam: CHEST,TWO VIEWS DI CHEST,TWO VIEWS CLINICAL HISTORY: r/o pneumonia COMPARISON: None TECHNIQUE: Frontal and lateral view of the chest was obtained FINDINGS: Lines and Tubes: None Lungs: No focal consolidation. Pleura: No effusion. No pneumothorax. Cardiomediastinal contours: Unremarkable Bones: No acute osseous abnormality. IMPRESSION: 1. No acute cardiopulmonary disease. Electronically Signed by:KEVAN ANN MD Date & Time: 02/03/25 1340 Dictated by: KEVAN ANN MD Dictation date and time: 02/03/25 1323 I have reviewed and agree with the radiology report. I have reviewed and interpreted the imaging as: No focal consolidation or pneumothorax Medical Decision Making Additional information obtaine: N/A Findings This 39-year-old male with a history of smoking and methamphetamine use presented due to persistent productive cough, patient's physical exam was reassuring with clear lung sounds in all pimentel and vital signs stable without evidence of hypoxia or fever, additionally reassuring patient reported no fevers . Imaging did not demonstrate evidence of focal consolidation to suggest pneumonia, lab work did not demonstrate evidence of infection with no leukocytosis and patient does not report history of immune compromise. Given has history of smoking and smoking methamphetamine I suspect persistent cough due to inflammation from tobacco and methamphetamine smoking. Patient is otherwise well-appearing and hemodynamically stable and appropriate for outpatient follow up. A referral has been made to substance use navigator to assist patient with finding resources for rehabilitation for methamphetamine abuse. Patient provided careful return to care precautions, follow up instructions, and home care instructions. Differential Dx:Considerations: Include: Allergic rhinitis, Influenza, Otitis media, Peritonsillar abscess, Pharyngitis-Diphtheria, Pharyngitis-Streptoccal, Pharyngitis-Viral, Pneumonia, Pnuemonitis, Sinusitis, URI Departure Time of Disposition: 16:04 Disposition: 01 HOME / SELF CARE / HOMELESS Impression: Primary Impression: Cough Qualified Codes: R05.3 - Chronic cough Condition: Improved Discharge Instructions: Cough, Adult Additional Instructions: I suspect your chronic cough is due to your smoking of tobacco and methamphetamine, please stop smoking especially methamphetamine. Our substance use navigator may reach out to you in the next few days to help you with resources to get off methamphetamine, please also see [facility] for resources to help get off methamphetamine. Please follow up with your primary care provider in the next few days. Please return to the emergency department for any new or worsening concerning symptoms. Referrals: NO PRIMARY CARE PROVIDER (PCP) Prescriptions Ibuprofen* (Motrin*) 400 Mg Tablet 1 TAB PO Q8H for pain or fever for 20 Days, #60 TAB Prov: VARINDER ASH 02/03/25 Education Educated: Patient Educated regarding: diagnosis, treatment, prognosis, need for follow up Signature Scribe Signature: No scribe Attestation: The note accurately reflects work and decisions made by me.GABRIEL Glass 02/03/25 20:41 VARINDER ASH Feb 03, 2025 15:45
[2025-02-03] MEDS ORDERED: IBUP-1984 PO (16:04)
[2025-02-03] MEDS: ibuprofen tablet 400 MG TABLET PO ONE (16:15)
[2025-02-03 16:21] VITALS: BP 108/73; PULSE 67; RESP 14; O2SAT 96
== END 2025-02-03 16:24 | disposition home or self-care (01) ==
LOC: ER 13:02
DX: R05.9 Cough, unspecified (principal); F17.200 Nicotine dependence, unspecified, uncomplicated; F15.90 Other stimulant use, unspecified, uncomplicated; G43.909 Migraine, unspecified, not intractable, without status migrainosus; K21.9 Gastro-esophageal reflux disease without esophagitis; F41.9 Anxiety disorder, unspecified; G89.29 Other chronic pain; Z88.8 Allergy status to other drugs, medicaments and biological substances; Z88.5 Allergy status to narcotic agent; Z79.899 Other long term (current) drug therapy; Z59.00 Homelessness unspecified; Z56.0 Unemployment, unspecified; Z60.2 Problems related to living alone
CPT/HCPCS: 36415; 71046; 80048; 83880; 85025; 87040; 99284

== ENCOUNTER 2025-02-04 11:11 | Emergency (ER) | payer MEDICARE, MEDICAID ==
[~2025-02-04] VITALS: Ht 172.7 cm; Wt 70.8 kg
[~2025-02-04 11:11] MED LIST changes: +IBUP-1984 PO
[2025-02-04 11:20] VITALS: BP 118/72; PULSE 91; RESP 18; TEMP 97.6; O2SAT 97
--- NOTE | 2025-02-04 12:53 | Physician Documentation ---
History of Present Illness ~ General Chief Complaint: Puncture Wound Stated Complaint: FOOT PAIN Time Seen by MD: 12:29 Primary Medical Doctor: GUILLERMO Che History of Present Illness Initial Comments Patient is seen today with complaints of pain in his left foot on the plantar surface of his great toe. Patient states he stepped on a nail last night. Patient states his Tdap is up-to-date last receiving it two years ago. Patient also states he is in a methadone clinic and is adjusting his dose and needs to have an EKG performed. Patient currently denies any chest pain or shortness of breath or abdominal pain or nausea, vomiting, diarrhea. Patient has no other concern or complaint at this time. Medication Reconciliation Allergies: Coded Allergies: tramadol (Unverified Allergy, Intermediate, SEIZURES, 02/04/25) chlorpromazine (Verified Adverse Reaction, Intermediate, FAINTING, 02/04/25) Scheduled Buprenorphine Hcl/Naloxone Hcl (Suboxone 4 Mg-1 Mg Sl Film), 1 STRIP SL DAILY Gabapentin (Gabapentin), 1 TAB PO Q8H, (Reported) Ibuprofen (Ibuprofen), 1 TAB PO Q8H Discontinued Medications Diclofenac Sodium (Diclofenac Sodium), 1 TABLET PO BID Discontinued Reason: patient no longer taking Gabapentin (Gabapentin), 1 TAB PO Q8H Discontinued Reason: patient no longer taking Gabapentin (Gabapentin), 1 TAB PO Q8H Discontinued Reason: patient no longer taking Gabapentin (Neurontin), 1 TAB PO Q8H Discontinued Reason: patient no longer taking Ibuprofen (Ibu), 1 TAB PO Q4H Discontinued Reason: patient no longer taking Ibuprofen (Ibuprofen), 1 TAB PO Q8H Discontinued Reason: patient no longer taking Ibuprofen* (Motrin*), 1 TAB PO Q8H Discontinued Reason: patient no longer taking Lidocaine (Lidoderm), 1 PATCH TOP DAILY Discontinued Reason: patient no longer taking Loperamide HCl (Imodium A-D), 1 TAB PO Q4H PRN for constipation Discontinued Reason: patient no longer taking Methocarbamol (Robaxin), 1 TAB PO Q8H Discontinued Reason: patient no longer taking ONDANSETRON ODT 4mg tablet (Ondansetron Odt), 1 TAB PO Q6H PRN PRN for nausea/vomiting Discontinued Reason: completed med therapy Past Medical History Past Medical History: Headache, Migraine, GERD, Chronic Pain, Anxiety Past Surgical History: no surgical history Alcohol Use: None Drug Use: none Lives with: Alone Lives In: Homeless, Other Occupation: unemployed Review of Systems Constitutional: Denies: chills, fever, weakness Eyes: Denies: pain, blurred vision ENT: Denies: ear pain, nose pain, throat pain, mouth pain Respiratory: Denies: cough, shortness of breath Cardiovascular: Denies: chest pain, palpitations Gastrointestinal: Denies: abdominal pain, nausea, vomiting Genitourinary: Denies: burning, dysuria Male Genitalia: Denies: penile discharge, testicular pain Neurological: Denies: headache, dizziness Musculoskeletal: Denies: pain, swelling Integumentary: Denies: rash, lesions Allergic/Immunologic: Denies: hives, itching Hematologic/Lymphatic: Denies: no symptoms reported Psychiatric: Denies: depression, anxiety Physical Exam Physical Exam Vital Signs: Temperature: 97.6, Source: Temporal, Heart Rate: 91, Respiratory Rate: 18, BP: 118/72, Pulse Oximetry: 97, Weight: 70.800 Physical Exam General: Awake and Alert, no acute distress. HEENT: Conjunctiva pink, Sclera clear, Mucus Membranes moist. Neck: Supple without masses and tenderness. Resp: Unlabored. Lungs clear to auscultation bilaterally. Heart: Regular Rate and rhythm, normal S1 and S2 without murmur, rub or gallop. Abdomen: Soft and non tender no organomegaly Extremities: No cyanosis,clubbing or edema. Skin: Patient on exam does have small puncture area in the plantar surface of left great toe in the area of the MTP joint. I do not appreciate any purulent drainage or discharge or surrounding erythema or induration or sign of infection. Progress Results/Orders Results/Orders Completed Orders - ELLIS AVILA PAC Electrocardiogram (02/04/25 12:48) Vital Signs 02/04/25 11:20 Temp 97.6 Pulse 91 Resp 18 B/P (MAP) 118/72 Pulse Ox 97 EKG/XRAY/CT/US/VASC/MRI EKG : Additional Comment EKG interpreted by myself today shows normal sinus rhythm, regular rate at 68 beats per minute, no ST segment elevation or ischemic changes. Medical Decision Making Additional information obtaine: N/A Findings Patient is seen today with complaints of pain in his left foot on the plantar surface of his great toe. Patient states he stepped on a nail last night. Patient states his Tdap is up-to-date last receiving it two years ago. Patient also states he is in a methadone clinic and is adjusting his dose and needs to have an EKG performed. Patient currently denies any chest pain or shortness of breath or abdominal pain or nausea, vomiting, diarrhea. Patient has no other concern or complaint at this time. Patient will perform daily wound care and daily dressing changes and will monitor for any infection of the left great toe. Patient will return to ED with any signs of infection or any worsening, concerning or changing symptoms. Patient did have EKG performed and was unremarkable without any sign of QT prolongation. Showed only normal sinus rhythm. Differential Diagnosis Puncture wound, general exam, EKG clearance. Departure Disposition: HOME / SELF CARE / HOMELESS Impression: Primary Impression: Puncture wound Additional Impression: General medical exam Condition: Stable Discharge Instructions: Puncture Wound, [id number] Additional Instructions: Patient will perform daily wound care and daily dressing changes and will monit or for any infection of the left great toe. Patient will return to ED with any signs of infection or any worsening, concerning or changing symptoms. Patient did have EKG performed and was unremarkable without any sign of QT prolongation. Showed only normal sinus rhythm. Referrals: NO PRIMARY CARE PROVIDER (PCP) Signature Scribe Signature: No scribe Attestation: No scribe ELLIS AVILA PAC Feb 04, 2025 12:53
--- NOTE | 2025-02-04 13:01 | ELECTROCARDIOGRAPH REPORT ---
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 CARO Fong Measurements Intervals [place] Rate: 68 P: 63 [place]: 144 QRS: 90 QRSD: 94 T: 74 QT: 416 QTc: 443 Interpretive Statements Sinus rhythm Borderline right axis deviation ST elev, probable normal early repol pattern Electronically Signed On 02-06-2025 18:09:[address] CARO Fong Please click the below link to view image of tracing.
== END 2025-02-04 14:04 | disposition home or self-care (01) ==
LOC: ER 11:11
DX: S91.132A Puncture wound without foreign body of left great toe without damage to nail, initial encounter (principal); G89.29 Other chronic pain; G43.909 Migraine, unspecified, not intractable, without status migrainosus; K21.9 Gastro-esophageal reflux disease without esophagitis; F41.9 Anxiety disorder, unspecified; Z88.5 Allergy status to narcotic agent; Z88.8 Allergy status to other drugs, medicaments and biological substances; Z79.899 Other long term (current) drug therapy; Z56.0 Unemployment, unspecified; Z59.00 Homelessness unspecified; Z60.2 Problems related to living alone; W45.0XXA Nail entering through skin, initial encounter; Y93.89 Activity, other specified; Y92.89 Other specified places as the place of occurrence of the external cause; Y99.8 Other external cause status
CPT/HCPCS: 93005; 99283

== ENCOUNTER 2025-02-15 15:45 | Emergency (ER) | payer MEDICARE, MEDICAID ==
[~2025-02-15] VITALS: Ht 170.2 cm; Wt 73.2 kg
[~2025-02-15 15:45] MED LIST changes: -DICL-194 PO; -GABA800T PO; -IBUP-1984 PO; -IBUP-860 PO; -LIDO-52 TOP; -LOPE-144 PO; -METH500T PO; -ONDA-243 PO
--- NOTE | 2025-02-15 16:41 | Physician Documentation ---
History of Present Illness ~ Chief Complaint: Abscess Stated Complaint: FACE ABCESS Time Seen by MD: 15:57 Primary Medical Doctor: GLEN Dupree This 39-year-old male presents with three days of several painful bumps to his face which patient reports has been draining purulent material, patient reports onset of symptoms after shaving his facial hair. Patient reports no other acute symptoms or concerns including no fever. Tetanus Within 5 Years: No Medication Reconciliation Allergies: Coded Allergies: tramadol (Unverified Allergy, Intermediate, SEIZURES, 02/15/25) chlorpromazine (Verified Adverse Reaction, Intermediate, FAINTING, 02/15/25) Scheduled Buprenorphine Hcl/Naloxone Hcl (Suboxone 4 Mg-1 Mg Sl Film), 1 STRIP SL DAILY Gabapentin (Gabapentin), 1 TAB PO Q8H, (Reported) Ibuprofen (Ibuprofen), 1 TAB PO Q8H Ibuprofen* (Motrin*), 1 TAB PO Q8H Sulfamethoxazole/Trimethoprim (Bactrim Ds Tablet), 1 TAB PO Q12H Past Medical History Past Medical History: Headache, Migraine, GERD, Chronic Pain, Anxiety Past Surgical History: no surgical history Alcohol Use: None Drug Use: none Lives with: Alone Lives In: Homeless, Other Occupation: unemployed Review of Systems ROS As stated above in the HPI, otherwise all systems are reviewed and negative. Physical Exam Vital Signs: Temperature: 98.6, Source: Oral, Heart Rate: 96, Respiratory Rate: 18, BP: 131/84, Pulse Oximetry: 97, Weight: 73.200 Oxygen Flow Rate: 0 Physical Exam VITALS: Reviewed and as above. GENERAL: Alert, nontoxic appearing, no apparent distress. HEENT: No significant facial swelling, no periorbital swelling, EOMI without pain RESPIRATORY: No increased work of breathing, no respiratory distress, speaking in full clear sentences SKIN: Approximately 1 cm round tender erythematous raised areas of mild induration without fluctuance to chin and right upper cheek within facial hair, approximately 1.5 cm round tender erythematous raised area without fluctuance to left lower cheek with open wound at center mild purulent drainage Progress Results/Orders Results/Orders Completed Orders - VARINDER ASH T RAIL TURNER Ibuprofen Tablet (Motrin Tablet) (02/15/25 16:35) Sulfamethox/Trimetho. Ds Tab (Septra Ds (02/15/25 16:35) Vital Signs 02/15/25 02/15/25 15:48 17:01 Temp 98.6 98.6 Pulse 96 83 Resp 18 18 B/P (MAP) 131/84 138/79 Pulse Ox 97 99 O2 Flow Rate 0 Medical Decision Making Additional information obtaine: N/A Findings Physical exam is consistent with furuncles, as there is spontaneously draining no I and D indicated, patient to be started on antibiotics, patient is otherwise well-appearing and appropriate for outpatient follow up. Patient provided careful return to care precautions, follow up instructions, and home care instructions. Differential Dx:Considerations: Include: Abscess, Bacteremia, Cellulitis, Erysipelas, Gas gangrene, Septicemia Departure Time of Disposition: 16:41 Disposition: 01 HOME / SELF CARE / HOMELESS Impression: Primary Impression: Furuncles Condition: Improved Discharge Instructions: Abscess, Care After Additional Instructions: Please take antibiotics as prescribed, use warm moist compresses on the areas of pain and swelling to help them drain. Please follow up with your primary care provider or the [facility] in the next few days. Please return to the emergency department for any new or worsening concerning symptoms. Referrals: NO PRIMARY CARE PROVIDER (PCP) Prescriptions Ibuprofen* (Motrin*) 400 Mg Tablet 1 TAB PO Q8H for pain or fever for 10 Days, #30 TAB Prov: VARINDER ASH 02/15/25 Sulfamethoxazole/Trimethoprim (Bactrim Ds Tablet) 800 Mg-160 Mg Tablet 1 TAB PO Q12H for 7 Days, #14 TAB Prov: VARINDER ASHP 02/15/25 Education Educated: Patient Educated regarding: diagnosis, treatment, prognosis, need for follow up Signature Scribe Signature: No scribe Attestation: The note accurately reflects work and decisions made by me.GABRIEL Glass 02/16/25 01:28 VARINDER ASH Feb 15, 2025 16:41
[2025-02-15] MEDS ORDERED: SULF1TAB49 PO (16:42)
[2025-02-15] MEDS ORDERED: IBUP-1984 PO (16:42)
[2025-02-15] MEDS: sulfamethoxazole/trimethoprim DS (800/160mg) tablet PO ONE (16:51)
[2025-02-15] MEDS: ibuprofen tablet 400 MG TABLET PO ONE (16:51)
[2025-02-15 17:01] VITALS: BP 138/79; PULSE 83; RESP 18; TEMP 98.6; O2SAT 99
== END 2025-02-15 17:00 | disposition home or self-care (01) ==
LOC: ER 15:46
DX: L02.01 Cutaneous abscess of face (principal); G43.909 Migraine, unspecified, not intractable, without status migrainosus; K21.9 Gastro-esophageal reflux disease without esophagitis; F41.9 Anxiety disorder, unspecified; G89.29 Other chronic pain; Z79.899 Other long term (current) drug therapy; Z56.0 Unemployment, unspecified; Z59.00 Homelessness unspecified; Z88.8 Allergy status to other drugs, medicaments and biological substances; Z60.2 Problems related to living alone
CPT/HCPCS: 99283

== ENCOUNTER 2025-02-17 08:27 | Emergency (ER) | payer MEDICARE, MEDICAID ==
[~2025-02-17] VITALS: Ht 170.2 cm; Wt 71.0 kg
[~2025-02-17 08:27] MED LIST changes: +IBUP-1984 PO; +SULF1TAB49 PO
[2025-02-17 08:32] VITALS: BP 117/85; PULSE 76; RESP 18; O2SAT 99
[2025-02-17] MEDS ORDERED: DOXY-1 PO (10:20)
--- NOTE | 2025-02-17 10:20 | Physician Documentation ---
History of Present Illness ~ Chief Complaint: Wound Stated Complaint: ABSCESS Time Seen by MD: 09:11 OK to notify your PCP?: Yes Primary Medical Doctor: GLEN Che Source: patient Mode of Arrival: POV Exam Limitations: no limitations HPI This is a 39-year-old male who comes in for a wounds of the left side of his face. The patient states he has had it for about a week after shaving. He says he gets these frequently in his tate line. He states he has been squeezing it and pus has been coming out. He denies fever or chills. He is not complaining of any significant pain Tetanus within 5 years?: Yes Medication Reconciliation Allergies: Coded Allergies: tramadol (Unverified Allergy, Intermediate, SEIZURES, 02/17/25) chlorpromazine (Verified Adverse Reaction, Intermediate, FAINTING, 02/17/25) Scheduled Buprenorphine Hcl/Naloxone Hcl (Suboxone 4 Mg-1 Mg Sl Film), 1 STRIP SL DAILY Gabapentin (Gabapentin), 1 TAB PO Q8H, (Reported) Ibuprofen (Ibuprofen), 1 TAB PO Q8H Ibuprofen* (Motrin*), 1 TAB PO Q8H Sulfamethoxazole/Trimethoprim (Bactrim Ds Tablet), 1 TAB PO Q12H Past Medical History Past Medical History: Headache, Migraine, GERD, Chronic Pain, Anxiety Past Surgical History: no surgical history Alcohol Use: None Drug Use: none Lives with: Alone Lives In: Homeless, Other Occupation: unemployed Physical Exam Vital Signs: Temperature: 98.5, Source: Temporal, Heart Rate: 76, Respiratory Rate: 18, BP: 117/85, Pulse Oximetry: 99, Weight: 71.000 Oxygen Flow Rate: 0 Pulse Oximetry Reflects: adequate oxygenation General Appearance: alert, WD/WN, no apparent distress Skin To inspection of the face the patient has a moderate-size pustule of the left lateral cheek. It is ulcerative and surrounding it with the erythema and edema. The area is somewhat firm with fluctuance. Progress Results/Orders Results/Orders Vital Signs 02/17/25 08:32 Temp 98.5 Pulse 76 Resp 18 B/P (MAP) 117/85 Pulse Ox 99 O2 Flow Rate 0 Medical Decision Making Additional information obtaine: N/A Findings With the patient has a pustule on the left side of the cheek which requires incision and drainage however the patient is in his adamantly refusing. He is requesting a prescription for amoxicillin. I told him that probably would not help his symptoms. I will place him on doxycycline 100 mg twice a day for 10 days. I will also prescribe chlorhexidine soap to wash the area with a. I told him if it worsens any way he will need to return to the ER for re-evaluation and potentially incision and drainage Differential Dx:Considerations: Include: Abscess, Cellulitis Additional Comment Facial abscess. Furuncle. Infected sebaceous cyst. Departure Disposition: HOME / SELF CARE / HOMELESS Impression: Primary Impression: Abscess Condition: Stable Discharge Instructions: Skin Abscess Additional Instructions: Take the antibiotics as prescribed. Wash the areas with soap twice a day. Follow up with the primary care physician for recheck in the next one or two days. Ibuprofen or Tylenol for discomfort. Return for any worsening or concerning symptoms Referrals: NO PRIMARY CARE PROVIDER (PCP) Prescriptions Doxycycline Hyclate (Doxycycline Hyclate) 100 Mg Capsule 1 CAP PO Q12H for 10 Days, #20 CAP Prov: DANNIELLE FITZPATRICK 02/17/25 Signature Scribe Signature: No scribe Attestation: The note accurately reflects work and decisions made by me.Dannielle IRVIN 02/17/25 10:21 DANNIELLE FITZPATRICK Feb 17, 2025 10:20
[2025-02-17 10:30] VITALS: TEMP 98.5
== END 2025-02-17 10:31 | disposition home or self-care (01) ==
LOC: ER 08:28
DX: L02.01 Cutaneous abscess of face (principal); G89.29 Other chronic pain; G43.909 Migraine, unspecified, not intractable, without status migrainosus; F41.9 Anxiety disorder, unspecified; K21.9 Gastro-esophageal reflux disease without esophagitis; Z88.5 Allergy status to narcotic agent; Z88.8 Allergy status to other drugs, medicaments and biological substances; Z79.899 Other long term (current) drug therapy; Z59.00 Homelessness unspecified; Z56.0 Unemployment, unspecified; Z60.2 Problems related to living alone
CPT/HCPCS: 99283

== ENCOUNTER 2025-02-20 13:38 | Emergency (ER) | payer MEDICAID, MEDICARE ==
[~2025-02-20] VITALS: Ht 170.2 cm; Wt 71.7 kg
[~2025-02-20 13:38] MED LIST changes: +DOXY-1 PO
[2025-02-20] MEDS ORDERED: SULF1TAB48 PO (14:14)
[2025-02-20] MEDS ORDERED: CEPH-585 PO (14:14)
--- NOTE | 2025-02-20 14:15 | Physician Documentation ---
History of Present Illness ~ Chief Complaint: Rash Stated Complaint: RT CHEEK ABSCESS Time Seen by MD: 13:50 Primary Medical Doctor: GLEN Dupree 39-year-old male returns to the ED for further evaluation an abscess on his left cheek. He was seen here recently opted not to have a I /d performed. Is abscess continues to drain. Patient denies having a fever and states that the a bscess does not hurt. Medication Reconciliation Allergies: Coded Allergies: tramadol (Unverified Allergy, Intermediate, SEIZURES, 02/17/25) chlorpromazine (Verified Adverse Reaction, Intermediate, FAINTING, 02/17/25) Scheduled Buprenorphine Hcl/Naloxone Hcl (Suboxone 4 Mg-1 Mg Sl Film), 1 STRIP SL DAILY Cephalexin*Monohydrate* (Keflex*), 1 CAP PO QID Doxycycline Hyclate (Doxycycline Hyclate), 1 CAP PO Q12H Gabapentin (Gabapentin), 1 TAB PO Q8H, (Reported) Ibuprofen (Ibuprofen), 1 TAB PO Q8H Ibuprofen* (Motrin*), 1 TAB PO Q8H Sulfamethoxazole/Trimethoprim (Bactrim Ds Tablet), 1 TAB PO Q12H Sulfamethoxazole/Trimethoprim (Bactrim 400-80 Mg Tablet), 1 TAB PO Q12H Past Medical History Past Medical History: Headache, Migraine, GERD, Chronic Pain, Anxiety Past Surgical History: no surgical history Alcohol Use: None Drug Use: none Lives with: Alone Lives In: Homeless, Other Occupation: unemployed Review of Systems All Other Systems at this time: Reviewed and Negative Physical Exam Vital Signs: Temperature: 97.6, Source: Temporal, Heart Rate: 94, Respiratory Rate: 16, BP: 110/69, Pulse Oximetry: 98, Weight: 71.700 Physical Exam General: Alert, no apparent distress. Respiratory: Lungs clear, no respiratory distress. Cardiovascular: Regular rate and rhythm, no murmurs. Gastrointestinal: Soft, nontender, nondistended. Bowels sounds present. Extremities: Normal range of motion, no deformity. Neurologic: Oriented x4. Psychiatric: Normal mood and affect. Skin:draing abscess left cheek ,non-fluctuant Progress Results/Orders Results/Orders Completed Orders - KM GAGE INFUSION PHARMACIST Electrocardiogram (02/20/25 14:32) Vital Signs 02/20/25 13:40 Temp 97.6 Pulse 94 Resp 16 B/P (MAP) 110/69 Pulse Ox 98 Medical Decision Making Additional information obtaine: old records Findings 39-year-old male does not present acutely ill or toxic appearing. Is abscess is draining does not feel fluctuant. Although he was prescribed doxycycline he is almost out. Going to start him on sulfa and Keflex and have him stopped doxycycline Patient requested an EKG and medical clearance for methadone treatment. His EKG did not show any signs of ST-elevation were QT prolongation and has a rate of 69 for my interpretation Differential Dx:Considerations: Include: Abscess, AIDS/HIV, Anthrax (cutaneous), Atopic dermatitis, Candidiasis, Contact dermatitis, Drug reaction, Erythema multiforme, Erysipelas, Gangrene, Herpes zoster, Herpes simplex, Hidradenitis suppurativa, Impetigo, Intertrigo, Lymes disease, Molluscum contagiosum, Osteomyelitis, Pediculosis, Pityriasis rosea, Psoriaisis, RMSF, Rosacea, Scabies, Scarlet fever, Tinea, Urticaria, Varicella, Viral exanthema, Other Departure Disposition: 01 HOME / SELF CARE / HOMELESS Impression: Primary Impression: Infection of skin and subcutaneous tissue Condition: Improved Discharge Instructions: Cellulitis, Adult Additional Instructions: Medically cleared for recovery and ongoing methadone treatment Referrals: NO PRIMARY CARE PROVIDER (PCP) Prescriptions Sulfamethoxazole/Trimethoprim (Bactrim 400-80 Mg Tablet) 400 Mg-80 Mg Tablet 1 TAB PO Q12H for 7 Days, #14 TAB Prov: KM GAGE NP 02/20/25 Cephalexin*Monohydrate* (Keflex*) 500 Mg Capsule 1 CAP PO QID, #40 CAP Prov: KM GAGE NP 02/20/25 Education Educated: Patient Educated regarding: diagnosis Signature Scribe Signature: f Attestation: Scribed for Km Gage Glass Bulb Machine Adjuster by Km Gregory NP . 02/20/25 14:44 KM GAGE NP Feb 20, 2025 14:14
--- NOTE | 2025-02-20 14:38 | ELECTROCARDIOGRAPH REPORT ---
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 Behzad Arias Measurements Intervals [place] Rate: 69 P: 75 VT: 163 QRS: 94 QRSD: 90 T: 61 QT: 422 QTc: 452 Interpretive Statements Sinus rhythm Consider left atrial enlargement Borderline right axis deviation Electronically Signed On 02-20-2025 21:37:[address] Behzad Arias Please click the below link to view image of tracing.
[2025-02-20 15:11] VITALS: BP 110/74; PULSE 75; RESP 16; TEMP 97.6; O2SAT 99
== END 2025-02-20 15:15 | disposition home or self-care (01) ==
LOC: ER 13:38
DX: L02.01 Cutaneous abscess of face (principal); K21.9 Gastro-esophageal reflux disease without esophagitis; F41.9 Anxiety disorder, unspecified; G43.909 Migraine, unspecified, not intractable, without status migrainosus; G89.29 Other chronic pain; Z88.8 Allergy status to other drugs, medicaments and biological substances; Z79.899 Other long term (current) drug therapy; Z59.00 Homelessness unspecified; Z56.0 Unemployment, unspecified; Z60.2 Problems related to living alone
CPT/HCPCS: 93005; 99283

== ENCOUNTER 2025-02-21 14:57 | Emergency (ER) | payer MEDICARE ==
[~2025-02-21] VITALS: Ht 172.7 cm; Wt 71.1 kg
[~2025-02-21 14:57] MED LIST changes: +CEPH-585 PO; +SULF1TAB48 PO
[2025-02-21 14:58] VITALS: BP 164/102; PULSE 94; RESP 16; TEMP 98.2; O2SAT 99
--- NOTE | 2025-02-21 15:40 | Physician Documentation ---
History of Present Illness ~ General Chief Complaint: See Chief Complaint Stated Complaint: MULTIPLE MED COMPLAINTS Time Seen by MD: 15:25 OK to notify your PCP?: Yes Primary Medical Doctor: GLEN Che Source: patient Mode of Arrival: POV Exam Limitations: no limitations History of Present Illness Initial Comments Patient reports that he is having issues with his energy levels being off. He reports that he needs help with restoring his green energy and clearing the blue energy". He reports the use taking antibiotics for a facial infection to his left cheek. He denies any drugs or alcohol today. Denies suicidal ideation or homicidal ideation. Denies any medical concerns other than above listed. Denies any chest pain or shortness of breath. Medication Reconciliation Allergies: Coded Allergies: tramadol (Unverified Allergy, Intermediate, SEIZURES, 02/17/25) chlorpromazine (Verified Adverse Reaction, Intermediate, FAINTING, 02/17/25) Scheduled Buprenorphine Hcl/Naloxone Hcl (Suboxone 4 Mg-1 Mg Sl Film), 1 STRIP SL DAILY Cephalexin*Monohydrate* (Keflex*), 1 CAP PO QID Doxycycline Hyclate (Doxycycline Hyclate), 1 CAP PO Q12H Gabapentin (Gabapentin), 1 TAB PO Q8H, (Reported) Ibuprofen (Ibuprofen), 1 TAB PO Q8H Ibuprofen* (Motrin*), 1 TAB PO Q8H Sulfamethoxazole/Trimethoprim (Bactrim Ds Tablet), 1 TAB PO Q12H Sulfamethoxazole/Trimethoprim (Bactrim 400-80 Mg Tablet), 1 TAB PO Q12H Past Medical History Past Medical History: Headache, Migraine, GERD, Chronic Pain, Anxiety Past Surgical History: no surgical history Alcohol Use: None Drug Use: none Lives with: Alone Lives In: Homeless, Other Occupation: unemployed Review of Systems All Other Systems at this time: Reviewed and Negative Physical Exam Physical Exam Vital Signs: RN Vital Signs have been reviewed: Yes, Temperature: 98.2, Source: Oral, Heart Rate: 94, Respiratory Rate: 16, BP: 164/102, Pulse Oximetry: 99, Weight: 71.100 Oxygen Flow Rate: 0 Progress Results/Orders Reviewed/noted all lab results: Yes Results/Orders Vital Signs 02/21/25 14:58 Temp 98.2 Pulse 94 Resp 16 B/P (MAP) 164/102 Pulse Ox 99 O2 Flow Rate 0 Medical Decision Making Additional information obtaine: old records Findings Patient reports that he needs help adjusting his energies that are "off". He denies any meth use today. She denies having any any other medical concerns that he would like addressed. Denies any shortness of breath cardiac symptoms or stroke symptoms. Differential Diagnosis Suicidal ideation, homicidal ideation, has schizophrenia, methamphetamine use, alcohol use, opioid use disorder Departure Disposition: HOME / SELF CARE / HOMELESS Impression: Primary Impression: General medical exam Condition: Stable Discharge Instructions: General Discharge Instructions Additional Instructions: Please follow up with regular provider. Return back here for any new or worsening symptoms. Referrals: NO PRIMARY CARE PROVIDER (PCP) Education Educated: Patient Educated regarding: diagnosis, treatment, prognosis, need for follow up Additional Comment Medical Screen Exam This patient recieved a medical screening examination. After reviewing the individual's medical complaints with presenting symptoms and performing an appropriate physical examination, it was determined that no immediate life- threatening emergency medical condition is present. This individual is also not a women having contractions. Signature Scribe Signature: . Attestation: Scribed for Shabnam aGtesp by Shabnam Gregory NP . 02/21/25 17:41 Parts of this note were created using [employer] voice recognition software program. While efforts were made to correct any mistakes made by this voice recognition software program, nonsensical phrases may remain in this note. In addition, there may be errors and syntax, grammar, content and spelling. SHABNAM GATESP Feb 21, 2025 15:39
== END 2025-02-21 15:49 | disposition home or self-care (01) ==
LOC: ER 14:58
DX: Z00.00 Encounter for general adult medical examination without abnormal findings (principal); G89.29 Other chronic pain; K21.9 Gastro-esophageal reflux disease without esophagitis; G43.909 Migraine, unspecified, not intractable, without status migrainosus; F41.9 Anxiety disorder, unspecified; Z88.5 Allergy status to narcotic agent; Z88.8 Allergy status to other drugs, medicaments and biological substances; Z79.899 Other long term (current) drug therapy; Z56.0 Unemployment, unspecified; Z59.00 Homelessness unspecified; Z60.2 Problems related to living alone
CPT/HCPCS: 99282